=== PATIENT | male | born 1940 | race Caucasian/White ===

== ENCOUNTER 2023-05-11 12:29 | Inpatient (IN) | payer MEDICARE, OTHER, SELFPAY ==
[2023-05-11] VITALS (37 sets, daily range): BP systolic 106–156; BP diastolic 48–82; PULSE 55–89; RESP 11–22; TEMP 36.7–37.1; O2SAT 98; BMI 3755.4
--- NOTE | 2023-05-11 12:31 | XACV_ITS ---
Exam Room: 2 Ht: 183 cm Wt: 87 kg BSA: 2.11 m2 Gender: Male : 1940 Exam Priority: Routine Procedure(s): Procedure Description: Diagnostic procedure Procedure Description: Coronary Angiography Procedure Description: Pressure Wire Laura JACOBS; Diagnostic Cath Status: Emergency Diagnostic Findings * Patient with previous stents to unknown vessels admitted to [facility] with chest pain and ST elevation inferiorly. CT scanning done at [facility] to rule out dissection which was accomplished. Patient was given the appropriate medications at the [facility] and transferred here by ground ambulance. He was brought directly to the catheterization laboratory without stopping in the emergency room. Initially, the procedure was attempted through the right radial artery. The wire could not be fed past the elbow. There was either an occlusion or abnormality of the vessel which did not allow the wire to pass. The needle and wire were removed and the procedure switched to the groin. * Procedure was begun with a right coronary guide. The right coronary artery is the dominant vessel and ends distally as the posterior descending artery which branches upon itself and 2 posterior left ventricular branches. There is mild to moderate disease throughout the entire vessel. In the proximal portion there is moderate diffuse disease which is partially in-stent restenosis from a previously placed stent in the mid right coronary artery. This narrowing is up to about 30%. Just past the stent in the mid vessel there is a 99% discrete stenosis. The left main coronary artery contains a 30 to 40% ostial stenosis. The diagnostic catheter and the guiding catheter was difficult to seat in this vessel. It is relatively small. There was ventricularization of the pressure tracing but this may have been due to the fact that the catheter was as big or slightly larger than the left main. The circumflex is unremarkable. There are 2 marginal branches. The LAD, past the takeoff of the diagonal branch, contains 2 stents. One is in the proximal portion and 1 followed shortly thereafter. Both of these have in-stent restenosis to about 60%.. * Patient appears to have an abdominal aortic aneurysm. I made an attempt to pass a pigtail catheter beyond this and was unsuccessful. I could pass diagnostic catheters and a guiding catheter but the pigtail catheter would not move past the abdominal aorta. Therefore, I was unable to perform left heart catheterization or ventriculography. PCI Status: Emergency PCI LVEF Assessed: No PCI Indication: STEMI - Immediate PCI for STEMI Interventional Findings * The right coronary guide was placed initially. The wire was placed down the vessel. The mid right coronary artery lesion was primarily stented with a 3.5 x 12 mm stent. The angiographic result was excellent. I next moved to the left main coronary artery. Given the ostial nature of the lesion I performed an IFR. This was 1.0. I tried to place the IFR catheter down the LAD but was unsuccessful due to inability to move the tip of the wire past the stents. Because of the visual appearance of the lesions I chose to perform plain old balloon angioplasty of both stented areas. I used a 2.5 x 15 mm noncompliant balloon to perform plain old balloon angioplasty of both stented areas. Good angiographic result. Decision for PCI with Surgical Consult: No PCI for Multi-vessel Disease: Yes Conclusions 1. Subacute inferior wall myocardial infarction with ST elevation inferiorly but patent vessel at the time of angiography. Primary stenting of the mid right coronary artery. Plain old balloon angioplasty for in-stent restenosis of 2 stents in the LAD, proximal and mid. Recommendations * Medical treatment. Interventional RX Recommendation: medical therapy and/or counseling Diagnostic RX Recommendation: medical therapy and/or counseling Anticoagulation: Heparin Pressures Phase:Rest AO : 110 / 64 ( 86 ) @ 12:58:00 PM 134 / 70 ( 98 ) @ 1:06:00 PM 126 / 63 ( 85 ) @ 1:07:00 PM 171 / 82 ( 117 ) @ 1:18:00 PM 166 / 86 ( 118 ) @ 1:43:00 PM Clinical Evaluation EBL: 5mL-10mL Procedural Details Pre-Procedure Time Out. Identified patient by full name and date of as verbalized by the patient/guarantor. Does the consent match the physician's order: N/A Emergent. Accurate & Complete Informed Consent: N/A Emergent. Inpatient/Outpatient History & Physical on Chart: N/A Emergent. If H&P is completed, is and addenduem needed: N/A Emergent; If yes, is the addendum complete: N/A Emergent. Visualize and Verify Site with Patient/Guarantor: N/A. Relevant Radiology Images available: N/A Emergent. Pre-op teaching completed and patient verbalized understanding. The risks, benefits, and alternatives of sedation and/or procedure were discussed by physician. The patient agrees to continue. Procedure started. [facility] Clinical Fraility Score: 5: Mildly Frail. Feather Shaper Indications: ACS <= 24 hours. Chest Pain Symptom Assessment: Typical Angina Symptoms. Cardiovascular Instability: Yes, if yes, Persistant Ischemic Symptoms. Correct patient, site and procedure confirmed by cath team. Current diagnosis: STEMI. PERRLA. Strong, equal hand credit underwriter bilaterally. Lungs clear x 5 lobes. IV Site on Arrival: 18 gauge in the left anticubital. IV Fluids: 0.9% NaCl at KVO. 0 mL infused prior to prosthetic lab technician. Pre Procedural Pulses: right radial was 3+. Oxygen started at 2liters/min via nasal canula. right groin was prepped with chloroprep then draped in the usual sterile fashion. right radial was prepped with chloroprep then draped in the usual sterile fashion. Baseline sample Acquired. HR: 63 BPM. Physician arrived. Current Diagnosis : STEMI. AP Pads placed on the patient. EMS stated the patient recieved plavix 600mg, heparin 4000 units, aspirin 324mg. Physician scrubbed in. Immediate Pre-Procedure Time Out. Correct Patient: Yes; Correct Procedure: Yes; Correct Site: Yes; Correct Patient Position: Yes; Correct Supplies: Yes; Dried Flammable Prep: Yes; Blood Products Available: N/A;. Lidocaine 1% infiltrated to the right groin. Arterial access obtained. Wire unable to advance. A TR Band was successful obtaining hemostatsis at the Right Radial artery insertion site. Lidocaine 1% infiltrated to the right groin. Arterial access obtained. 6 maltese JR 4 guide catheter was inserted over the wire. Runthrough guidewire was advanced through the guide catheter to lesion in the mid RCA. Inflation Number : 1 Maru Culver MARIANNE 3.5X12 CHETAN -Lot Number# _[id number] EXP: 01/31/2024 was prepped and advanced across the Mid RCA. The stent was deployed at 15 GISELA for 0:31 seconds. Stent balloon out over wire. Wire out. Guide catheter out. A 6 maltese JL4 catheter in over wire. Multiple views taken of left coronary artery. Catheter out. A 6 maltese Angled Pig catheter in over wire. Catheter removed over the exchange wire. Physician review of cine films. 6 maltese XB 3 guide catheter was inserted over the wire. IFR guidewire was advanced through the guide catheter to lesion in the LM. IFR Results: 0.99. Wire out. IFR guidewire was advanced through the guide catheter to lesion in the prox LAD. Physician review of cine films. Wire out. Melvin guidewire was advanced through the guide catheter to lesion in the prox LAD. Inflation number : 1 A MDT NC EUPHORA RX [id number] BALLOON was prepped and advanced across the Mid LAD , then inflated to 14 GISELA for 0:27 seconds. Inflation number: 1 The MDT NC EUPHORA RX [id number] BALLOON was reinflated across the Prox LAD, to 14 GISELA for 0:27 seconds. Balloon out. Results checked. Wire out. Guide catheter out. A Suture was successful obtaining hemostatsis at the Right Femoral artery insertion site. Physician scrubbed out. Arterial sheath flushed and connected to tranducer and pressure bag with heparinized saline. Post Procedure: Pulses reassessed and unchanged. PERRLA. Strong, equal hand credit underwriter bilaterally. No VTE prophylaxis required. Vital chart was stopped. Medication's Wasted: Nitro = 50 mg. Medication's Wasted: Lidocaine 1% = 8 mL. Medication's Wasted: Other = Versed 1 mg. Medication's Wasted: Heparin = 4000 units. Total IV fluids: 75 mL. PCI Indication: STEMI. Post-op diagnosis: CAD. Complications: None. Estimated blood loss: 5mL-10mL. Responsiveness - Normal response to verbal stimuli; alert and oriented, PERRLA. Airway - Unaffected, no intervention required; spontaneous ventilation. Circulation: W/N/L, pulses unchanged. Nausea/Vomiting: No. Procedure completed. Patient transferred by bed to 1st floor. Access Site Site: Right Radial artery Sheath Size: 6 Fr Hemostasis Method: TR Band Hemostasis Success: Successful Site: Right Femoral artery Sheath Size: 6 Fr Hemostasis Method: Suture Hemostasis Success: Successful Procedure Medications Start: 12:39 PM Stop: 12:39 PM Medication: Versed Amount: 1 mg Route: I.V. Start: 12:39 PM Stop: 12:39 PM Medication: Fentanyl Amount: 50 mcg Route: I.V. Start: 12:45 PM Stop: 12:45 PM Medication: Versed Amount: 1 mg Route: I.V. Start: 12:59 PM Stop: 12:59 PM Medication: Heparin Amount: 3000 units Route: I.V. Start: 1:28 PM Stop: 1:28 PM Medication: Fentanyl Amount: 50 mcg Route: I.V. Start: 1:37 PM Stop: 1:37 PM Medication: Benadryl Amount: 25 mg Route: I.V. Start: 1:41 PM Stop: 1:41 PM Medication: Heparin Amount: 2000 units Route: I.V. Start: 1:43 PM Stop: 1:43 PM Medication: Versed Amount: 1 mg Route: I.Heriberto Ross, the attending physician, have reviewed and verified all procedure medications. Yes, all medications given per verbal order History/Risk Factors Hypertension: No Dyslipidemia: No Peripheral Arterial Disease (PAD): No Myocardial Infarction (NV): No Obesity: No Renal Disease: No Tobacco Use: Current/Recent(w/in 1 year) Prior Interventions PCI: Yes CABG: No Valve Surgery: No Report Signatures Finalized by Dr. Otis Sanchez MD on 05/11/2023 02:30 PM
--- NOTE | 2023-05-11 14:02 | PM.HP ---
Providers/Chief Complaint Admitting Physician: екатерина Primary Care Provider: Minh Maher Chief Complaint: Stemi History of Present Illness Frankie Tolliver is a 82 year old male who has a history of previously placed stent. These were done in a different facility and locations are unknown. He is a smoker. We do not know anything else about his medical history. This morning around 9:00 he was getting ready to take his for cataract surgery and had the sudden onset of severe chest pain. She took him to [facility]. He had mild ST elevation in the inferior leads. The emergency room physician was worried that he had a aortic dissection. He then obtained a CTA of his aorta. That test came back negative for dissection. For some reason he was started on amiodarone drip. I do not know why that was the case. He was given morphine, Zofran, aspirin, 4000 units of heparin and 600 mg of Plavix. His creatinine is 0.94. He did not have any record of a troponin in that emergency room. Chest x-ray was read as pulmonary vascular congestion. His blood pressure was 156/92. I was called and asked to accept the patient in transfer for urgent cardiac catheterization. Patient was brought here and bypass in the emergency room and taken straight to the catheterization laboratory. Review of Systems Narrative: Review of systems is negative PFSH Acute PFSH: Medical History (Updated 05/11/23 @ 14:08 by Otis Sanchez MD) Tobacco abuse Essential hypertension CAD (coronary artery disease) Acute TX, inferior wall Surgical History (Updated 05/11/23 @ 14:08 by Otis Sanchez MD) History of coronary artery stent placement Physical Exam Narrative: GENERAL: In general he looks and feels well HEENT: Exam within normal limits. NECK: Supple without jugular vein distention. The carotid upstroke is normal without bruits. BACK: Exam normal. LUNGS: Clear. HEART: Regular rate and rhythm. ABDOMEN: Benign without organomegaly or tenderness. EXTREMITIES: No edema. NEUROLOGIC: Exam normal. SKIN: Unremarkable. A&P Assessment and plan (1) Acute TX, inferior wall: (2) CAD (coronary artery disease): (3) History of coronary artery stent placement: (4) Essential hypertension: (5) Tobacco abuse: Plan He appears to have an inferior injury pattern. He will go to the Medical [facility] Clinical urgently for angiography and potential intervention. Attestations Medical Necessity Statement*: Admission for acute inferior wall myocardial infarction. Anticipate 2 midnight stay. and High Time for a total of 90 minutes, includes reviewing past or interval history, examining/interviewing patient, placing orders, counseling patient/family/other support, updating patient/family/other support, discussing plan of care with staff, communicating with other healthcare providers, documenting encounter and coordinating care Diagnoses Acute TX, inferior wall I21.19 CAD (coronary artery disease) I25.10 History of coronary artery stent placement Z95.5 Essential hypertension I10 Tobacco abuse Z72.0
[2023-05-11] MEDS: sodium chloride 0.9% 1,000 ML 100 ML IV (14:15)
--- NOTE | 2023-05-11 14:19 | USCV_ITS ---
Frankie Tolliver Age: 82 Gender: M : 1940 Exam Date: 05/11/2023 15:03 Ordering Phys: Otis Sanchez MD Technologist: CT Exam Location: [facility] [place]_ Indication: cad,mi BP: 155 / 78 HR: 58 Rhythm: Sinus Technical Quality: Suboptimal MEASUREMENTS (Male / Female) Normal Values 2D ECHO LVOT Diameter 2.6 cm LV Ejection Fraction MOD 2C 57.2 % LV Ejection Fraction 2C AL 57.4 % LA Diameter 3.8 cm Aorta at Sinotubular Diameter 2.3 cm M-MODE Aortic Annulus Diameter 3.5 cm LA Ao Ratio MM 1.1 MV E Point Septal Separation 1.0 cm DOPPLER AV Peak Velocity 157.0 cm/s LVOT Peak Velocity 116.0 cm/s AV Area Cont Eq vti 3.8 cm squared AV Area Cont Eq pk 3.9 cm squared MV E' Velocity 8.0 cm/s TR Peak Velocity 95.0 cm/s TR Peak Gradient 3.6 mmHg TV Peak E Velocity 62.0 cm/s Right Atrial Pressure 3.0 mmHg Pulmonary Artery Systolic Pressu 6.6 mmHg PV Peak Velocity 108.0 cm/s FINDINGS Left Ventricle Normal left ventricular cavity size. Normal left ventricular wall thickness. Mildly decreased left ventricular systolic function. Mild hypokinesis of the inferior wall. Ejection fraction 50 to 55%. Grade 1 diastolic dysfunction. Right Ventricle Normal right ventricular size and systolic function. Normal right ventricular systolic pressure. Right Atrium The right atrium is normal in size. Left Atrium The left atrium is normal in size. Mitral Valve Structurally normal mitral valve. Trace mitral valve regurgitation. Aortic Valve Structurally normal trileaflet aortic valve. Mild aortic valve regurgitation. No aortic valve stenosis. Tricuspid Valve Structurally normal tricuspid valve without significant stenosis or regurgitation. Pulmonary artery systolic pressure is normal. Pulmonic Valve Pulmonic valve not well visualized. Pericardium Normal pericardium without effusion. Aorta Normal ascending aorta dimension. IVC The inferior vena cava appears normal. CONCLUSIONS Normal left ventricular cavity size. Normal left ventricular wall thickness. Mildly decreased left ventricular systolic function. Mild hypokinesis of the inferior wall. Ejection fraction 50 to 55%. Grade 1 diastolic dysfunction. Structurally normal mitral valve. Trace mitral valve regurgitation. Structurally normal trileaflet aortic valve. Mild aortic valve regurgitation. No aortic valve stenosis. There are no prior echocardiogram studies to compare. Dr. Otis Sanchez MD (Electronically Signed) Final Date: 12 May 2023 07:16 S
--- NOTE | 2023-05-11 14:39 | USCV_ITS ---
Frankie Tolliver Age: 82 Gender: M : 1940 Exam Date: 05/11/2023 16:27 Ordering Phys: Otis Sanchez MD Technologist: Exam Location: Indication: aaa screening HISTORY: Diameter (cm) AP x Transverse x Length Velocity (cm/s) Waveform Prox Aorta: x x Mid Aorta: 3.60 x 3.50 x Distal Aorta: 3.50 x 3.70 x Right Iliac Prox: 1.10 x 1.30 x Left Iliac Prox: 1.00 x 1.30 x Stent Prox Landing x x Aneurysmal Sac Max x x Lt Lat Sac Dim Rt Lat Sac Dim Stent Dist Landing x x Right Iliac Stent x x Left Iliac Stent x x Right Renal Art Left Renal Art FINDINGS: CONCLUSIONS Distal AAA measuring 3.5 x 3.7cm. Mild atheromatous disease Normal Iliac arteries Los Huizar MD (Electronically Signed) Final Date: 11 May 2023 16:59 S
[2023-05-11 16:15] LABS: Troponin T (5th) Once 132 ng/L (0-15)
[2023-05-11] MEDS: metoprolol tartrate 25 mg Tablet PO ×2 (16:18→20:52)
[2023-05-11 16:19] LABS: Partial Thromboplastin Time 77.1 SECONDS (23.9-36.7)
--- NOTE | 2023-05-11 20:09 | PC.NURSE ---
Patient is s/p [facility] with right groin access. Patient had sheath remaining in place at shift change. Site without s/s of bleeding and hematoma formation. Initiated sheath removal per protocol at 194. Homeostasis achieved immediately. Maintained manual pressure to site for 20min. Covered site with folded 4x4 and bio-occlusive dressing. VS remained WNL. Site remains free from bleeding or hematoma formation. Instructed patient and spouse regarding site and restrictions. Both verbalized complete understanding. Will continue to monitor.
[2023-05-11 20:38] LABS: Partial Thromboplastin Time 28.9 SECONDS (23.9-36.7)
[2023-05-11] MEDS: atorvastatin 40 mg Tablet 80 MG PO (20:52)
[2023-05-12 01:52] VITALS: PULSE 55
[2023-05-12 03:28] VITALS: BP 120/64; PULSE 54; RESP 16
[2023-05-12 04:58] LABS: Basophils % 0.4 %; Eosinophils # 0.2 10^3/uL (0.0-0.8); Eosinophils % 2.3 %; Lymphocytes # 1.6 10^3/uL (0.8-4.8); Lymphocytes % 18.7 %; Mean Corpuscular HGB Conc 33.4 g/dL (30-55); Mean Corpuscular Hemoglobin 32.3 pg (27-33); Mean Corpuscular Volume 96.7 fl (82-101); Mean Platelet Volume 9.1 fL (7.4-10.4); Monocytes # 0.8 10^3/uL (0.2-0.9); Neutrophils # 5.94 10^3/uL (1.8-7.7); Neutrophils % 69.2 %; Nucleated Red Blood Cells % 0 %; Platelet Count 229 10^3/cmm (157-399); Red Blood Count 3.62 10^6/uL (3.85-5.65); Red Cell Distribution Width 13.2 % (12.1-15.1); White Blood Count 8.57 10^3/uL (3.29-11.43)
[2023-05-12 05:15] LABS: Anion Gap 13.4 (5-19); Blood Urea Nitrogen 16 mg/dL (8-23); Calcium 8.9 mg/dL (8.5-10.5); Carbon Dioxide 23 mmol/L (22-29); Chloride 107 mmol/L (98-107); Glucose 107 mg/dL (65-115); Osmolality Calculated 290 mOsm/kg (285-295); Potassium 4.4 mmol/L (3.5-5.1); Sodium 139 mmol/L (136-145)
[2023-05-12 06:00] VITALS: PULSE 56
--- NOTE | 2023-05-12 07:47 | P.DS_ITS ---
Discharge Providers Date of Admission: 05/11/23 14:08 Date of Discharge: May 12, 2023 Attending Provider at Admission: Otis Sanchez MD Attending Provider at Discharge: Otis Sanchez MD Primary Care Provider: Minh Franklinno Diagnoses at Discharge Discharge Diagnosis (1) Acute FL, inferior wall: Status: Acute (2) CAD (coronary artery disease): Status: Acute (3) History of coronary artery stent placement: Status: Acute (4) Essential hypertension: Status: Acute (5) Tobacco abuse: Status: Acute Reason for Visit Reason for Visit: Stemi Brief History: Patient with a history of prior stents who had the sudden onset of chest discomfort yesterday morning around 9:00. He went to his local hospital which is about a 45-minute drive from here. His EKG suggested inferior injury. There was a delay getting out of the originating hospital due to the fact that the patient had a CTA of his aorta to rule out an aneurysm or dissection. Additionally there was delay in getting in the ambulance. He was brought here by ground ambulance. We did not stop him in the emergency room and took him st raight to the catheterization laboratory. His pain was fairly typical. He was hemodynamically stable upon arrival. He had been given aspirin, Plavix and heparin in the originating hospital. He was essentially pain-free by the time he arrived here. Hospital Course Hospital Course He was taken immediately to the cardiac catheterization laboratory here. I was able to enter the radial artery on the right without any difficulty however the wire would not pass beyond the elbow. Therefore I remove the wire and the needle and initiated the case through the right common femoral artery. I had some difficulty negotiating what is an abdominal aortic aneurysm. It manage to hold up the catheters especially the pigtail to the point where I was unable to pass the pigtail. The other catheters would go beyond the aneurysm. His right coronary artery is dominant. He has a previous stent in the proximal to midportion. There is minimal in-stent restenosis in the proximal part of that stent. Just beyond the stent there is a 99% discrete stenosis of the right coronary artery which was the culprit lesion. I primarily stented this with a 3.5 x 12 mm stent. He has 2 stents in his LAD. Both of these had about 60 to 70% restenosis. He also had a minimal ostial left main stenosis. There was some ventricularization of the pressure waveform upon placement of the catheter. This may have been due to the fact that the left main is relatively small and the catheter is at least as large or perhaps slightly larger than the left main itself. To be sure, I did an IFR of the left main. It was 1.0. I was not able to pass the IFR wire down the LAD due to tortuosity and curvature of the LAD and inability to move the wire past the stents. I therefore put an angioplasty wire down and did plain old balloon angioplasty with a noncompliant balloon of both stents. The angiographic results in all 3 areas was good. CBC was unremarkable. His electrolytes BUN and creatinine were normal. Troponin was repeated here last evening and was 132. This was several hours into the chest pain. His echo revealed very minimal hypokinesis of the inferior wall with an ejection fraction of 50 to 55%. No valvular abnormalities to speak of. Mild aortic insufficiency and trace mitral regurgitation were noted. Because of my suspicion of a AAA. I performed an ultrasound of the abdominal aorta. There is a 3.5 x 3.7 distal AAA. Patient did well overnight and was anxious to go home the following day. There were no complications at either entry site the right radial of the right groin. Both he and his have been instructed on how to take care of the groin site and his activity restrictions. Patient's told me that he had difficulty with Plavix when he was first stented years ago. She said it made him out of his mind . We will therefore switch him over to Brilinta upon his discharge. He was on no cardiac medications when he arrived. No aspirin, no beta-alisa, no statin. Those have all been added. His other medications have been continued. Physical Exam Narrative: GENERAL: In general he looks and feels well HEENT: Exam within normal limits. NECK: Supple without jugular vein distention. The carotid upstroke is normal without bruits. BACK: Exam normal. LUNGS: Clear. HEART: Regular rate and rhythm. ABDOMEN: Benign without organomegaly or tenderness. EXTREMITIES: No edema. The right radial site is without bleeding, hematoma or other vascular anomaly. The right common femoral entry site is flat, dry without bleeding or hematoma or without pulsatile mass. There is a good pulse in both locations. NEUROLOGIC: Exam normal. SKIN: Unremarkable. Discharge Data Studies Completed and Pending Completed Studies During Hospitalization Category Date Time Status CONFIGURATION DEVELOPER request for service Stat Exams 05/11/23 12:31 Completed CV abd [place] [id number] Routine Ultrasound 05/11/23 14:39 Completed CV. echo complete* [id number] Routine Ultrasound 05/11/23 14:19 Completed Laboratory Results WBC 8.57 10^3/uL (3.29-11.43) 05/12/23 04:44 RBC 3.62 10^6/uL (3.85-5.65) L 05/12/23 04:44 Hgb 11.70 g/dL (11.27-16.99) 05/12/23 04:44 Hct 35.0 % (37-53) L 05/12/23 04:44 MCV 96.7 fl (82-101) 05/12/23 04:44 MCH 32.3 pg (27-33) 05/12/23 04:44 MCHC 33.4 g/dL (30-55) 05/12/23 04:44 RDW 13.2 % (12.1-15.1) 05/12/23 04:44 Plt Count 229 10^3/cmm (157-399) 05/12/23 04:44 MPV 9.1 fL (7.4-10.4) 05/12/23 04:44 Neut % (Auto) 69.2 % 05/12/23 04:44 Lymph % (Auto) 18.7 % 05/12/23 04:44 [place] % (Auto) 9.0 % 05/12/23 04:44 Eos % (Auto) 2.3 % 05/12/23 04:44 Baso % (Auto) 0.4 % 05/12/23 04:44 Neut # (Auto) 5.94 10^3/uL (1.8-7.7) 05/12/23 04:44 Lymph # (Auto) 1.6 10^3/uL (0.8-4.8) 05/12/23 04:44 [place] # (Auto) 0.8 10^3/uL (0.2-0.9) 05/12/23 04:44 Eos # (Auto) 0.2 10^3/uL (0.0-0.8) 05/12/23 04:44 Baso # (Auto) 0.0 10^3/uL (0.0-0.1) 05/12/23 04:44 Nucleated RBC % (auto) 0 % 05/12/23 04:44 Nucleated RBCs # 0.0 /100WBC 05/12/23 04:44 APTT 28.9 SECONDS (23.9-36.7) D 05/11/23 19:36 Sodium 139 mmol/L (136-145) 05/12/23 04:44 Potassium 4.4 mmol/L (3.5-5.1) 05/12/23 04:44 Chloride 107 mmol/L (98-107) 05/12/23 04:44 Carbon Dioxide 23 mmol/L (22-29) 05/12/23 04:44 Anion Gap 13.4 (5-19) 05/12/23 04:44 BUN 16 mg/dL (8-23) 05/12/23 04:44 Creatinine 0.7 mg/dL (0.7-1.2) 05/12/23 04:44 GFR Calculation Not Reportable 05/12/23 04:44 Glucose 107 mg/dL (65-115) 05/12/23 04:44 Calculated Osmolality 290 mOsm/kg (285-295) 05/12/23 04:44 Calcium 8.9 mg/dL (8.5-10.5) 05/12/23 04:44 Troponin T 5th Gen ng/L 132 ng/L (0-15) H* 05/11/23 15:38 Procedures Performed Coronary angiography. IFR of the left main. Primary stenting mid right coronary artery. Angioplasty proximal and mid LAD for in-stent restenosis. Vitals Last Vital Signs Temp 98.8 F 05/11/23 23:25 Pulse 56 L 05/12/23 06:00 Resp 16 05/12/23 03:28 BP 120/64 05/12/23 03:28 Pulse Ox 98 05/11/23 15:47 O2 Del Method Room Air 05/11/23 23:25 Discharge Plan Discharge Patient Disposition: Home Condition: Stable Prescriptions: New Brilinta 90 mg tablet 90 mg PO BID Qty: 60 4RF trazodone 100 mg tablet 100 mg PO DAILY Qty: 20 0RF aspirin 81 mg Tablet,Delayed Release (Dr/Ec) 81 mg PO DAILY Qty: 100 0RF atorvastatin 40 mg Tablet 80 mg PO BEDTIME Qty: 90 3RF nitroglycerin 0.4 mg Tablet, Sublingual 0.4 mg sublingual Q5M PRN (Reason: Chest Pain) Qty: 25 0RF metoprolol tartrate 25 mg Tablet 25 mg PO Q12H Qty: 180 2RF Continued tramadol 50 mg tablet 50 mg PO TID PRN (Reason: Pain) citalopram 20 mg tablet 20 mg PO BEDTIME hydroxyzine HCl 25 mg tablet 25 mg PO TID PRN (Reason: Itching) pregabalin 75 mg capsule 75 mg PO BID Discharge Orders: Discharge Order (Routine); Ordered 05/12/23 Ordered By: Otis Sanchez Referrals: Otis Sanchez MD [Physician] - 3 months Radha Whitlock FNP [Nurse Practitioner] - 05/20/23 11:00 am (Check right groin site and chemistry panel.) Discharge Diet: Cardiac Discharge Activity: Resume usual activity and Limit activity as instructed Patient Instructions: Opioid Safety Activity Restrictions/Additional Instructions: No lifting over 5 pounds for 2 days Discharge Attestations Time Spent in Discharge Care*: greater than 30 min Quality Metrics Clinical Quality Measures [ Acute Myocardial Infaction { Clinical Trial Participant: No; Contraindication to aspirin: None; Aspirin prescribed; Contraindication to statin: None; Statin prescribed; Contraindication to PCI: None; PCI performed;}] Coding Level of Care Code 24656 Total time (in minutes) for Discharge: 40 Diagnoses Acute FL, inferior wall I21.19 CAD (coronary artery disease) I25.10 History of coronary artery stent placement Z95.5 Essential hypertension I10 Tobacco abuse Z72.0
[2023-05-12] MEDS: metoprolol tartrate 25 mg Tablet PO (09:02)
[2023-05-12] MEDS: clopidogrel 75 mg Tablet PO (09:02)
[2023-05-12] MEDS: aspirin 81 mg EC Tablet PO (09:02)
[2023-05-12 09:13] VITALS: BP 121/68
[2023-05-12 09:14] VITALS: BP 121/68
--- NOTE | 2023-05-12 09:35 | PC.NURSE ---
Addendum entered by Parker Odonnell RN 05/12/23 09:54: pt d/c home via w/c to POV with his . Original Note: Discharge Note Patient discharged to [] via [] accompanied by []. Discharge instructions reviewed with patient and/or surgical sales representative. Mobile pharmacy medications and/or prescriptions provided. Belongings/home medications returned.
== END 2023-05-12 09:35 | disposition home or self-care (01) | DRG 322 ==
LOC: ER 12:41 → CCL 12:43 → CSU 14:08
PROVIDERS: Admitting Provider Internal Medicine Cardiovascular Disease; Emergency Provider Emergency Medicine; PCP Family Medicine; Visit Provider Internal Medicine Cardiovascular Disease
PROC: 027034Z Dilation of Coronary Artery, One Artery with Drug-eluting Intraluminal Device, Percutaneous Approach (ICD-10-PCS; principal; 2023-05-11 12:30)
PROC: 027034Z Dilation of Coronary Artery, One Artery with Drug-eluting Intraluminal Device, Percutaneous Approach (ICD-10-PCS; 2023-05-11 12:30)
DX: I21.19 ST elevation (STEMI) myocardial infarction involving other coronary artery of inferior wall (principal); T82.855A Stenosis of coronary artery stent, initial encounter; I25.10 Atherosclerotic heart disease of native coronary artery without angina pectoris; Z95.5 Presence of coronary angioplasty implant and graft; Y84.0 Cardiac catheterization as the cause of abnormal reaction of the patient, or of later complication, without mention of misadventure at the time of the procedure; I10 Essential (primary) hypertension; F17.210 Nicotine dependence, cigarettes, uncomplicated; I71.40 Abdominal aortic aneurysm, without rupture, unspecified
CPT/HCPCS: 36415; 76706; 80048; 84484; 85025; 85730; 92920; 93306; 93454; 93571; 96361; 96365; 99152; 99153; 99285; C1725; C1769; C1874; C1887; C1894; C9600; J0461; J1200; J1644; J2250; J3010; J3490; J7030; Q9967

== ENCOUNTER → 2023-05-20 11:38 | Outpatient (BNVA) | payer MEDICARE, OTHER, SELFPAY | PROVIDERS: PCP Family Medicine; Visit Provider Nurse Practitioner Family | DX: I25.10 Atherosclerotic heart disease of native coronary artery without angina pectoris (principal); I10 Essential (primary) hypertension | CPT/HCPCS: 36415; 80048; 99214 ==

== ENCOUNTER → 2023-08-10 10:40 | Outpatient (BNVA) | payer MEDICARE, OTHER, SELFPAY | PROVIDERS: PCP Family Medicine; Visit Provider Internal Medicine Cardiovascular Disease | DX: I25.10 Atherosclerotic heart disease of native coronary artery without angina pectoris (principal); Z95.5 Presence of coronary angioplasty implant and graft; I10 Essential (primary) hypertension; Z72.0 Tobacco use; R91.8 Other nonspecific abnormal finding of lung field | CPT/HCPCS: 99214 ==

== ENCOUNTER → 2023-08-15 14:41 | Outpatient (BNVA) | payer MEDICARE, OTHER, SELFPAY | PROVIDERS: PCP Family Medicine; Visit Provider Internal Medicine Pulmonary Disease | DX: R91.8 Other nonspecific abnormal finding of lung field (principal); J43.9 Emphysema, unspecified; F17.210 Nicotine dependence, cigarettes, uncomplicated | CPT/HCPCS: 99204 ==

== ENCOUNTER 2023-08-23 10:12 | Outpatient (CLI) | payer MEDICARE, OTHER, SELFPAY ==
--- NOTE | 2023-08-23 10:16 | PETR_ITS ---
PROCEDURE INFORMATION: Exam: PET/CT Skull Base to Mid-thigh Exam date and time: 08/23/2023 11:01 AM Age: 82 years old Clinical indication: Mass of upper lobe of right lung LABS AND CLINICAL REPORTS: Glucose: 103 mg/dl Treatment strategy for malignancy (PET staging): Initial Staging (PI) TECHNIQUE: Imaging protocol: Following at least four-hour fasting and following the injection of radiopharmaceutical, low dose CT images were obtained. Then, PET images were obtained. Attenuation corrected images were constructed using the CT scan. Fused images of PET and CT were reviewed. The standardized uptake values (SUV) reported below are maximum values within a region of interest, expressed in gm/ml. Exam includes orbital meatal line to mid-thigh. Radiopharmaceutical: 11.43 mCi F-18 FDG (Fluorodeoxyglucose), IV. Time of imaging post radiopharmaceutical administration: 1 hour Injection site: Right antecubital vein COMPARISON: CT angio chest w abd pel w con 05/11/2023 FINDINGS: Brain: Visualized brain has normal physiologic uptake. Pharynx: No abnormal uptake. Larynx: No abnormal uptake. Lungs, pleura and trachea: Right upper lobe consolidation with irregular V-shaped branching appearance and spiculated margins with the highest uptake of 4.3 SUV is smaller in comparison with prior exam on 05/11/2023 with partial resolution of the lower most component as seen on series 3 image 78-80. The overall maximal oblique craniocaudal span of this consolidation on sagittal reformatted image decreased from 6 cm to 4.3 cm. The anterior-posterior diameter of the opacity measured on axial image 75 decreased from 4 cm to 2.4 cm. No pleural effusion. Heart: Normal physiologic uptake. There is no cardiomegaly. Coronary artery calcification is present. There is no pericardial effusion. Mediastinal space: See below in lymph nodes . Liver: No abnormal uptake. Small calcified granuloma. Gallbladder and bile ducts: No abnormal uptake. No calcified gallstones. Pancreas: No abnormal uptake. Punctate calcifications seen with chronic pancreatitis. No significant atrophy. Spleen: No abnormal uptake. No splenomegaly. Small calcified granulomas. Adrenal glands: No abnormal uptake. No nodules. Kidneys and ureters: Normal physiologic uptake. No hydronephrosis. Tiny bilateral nonobstructing stones measuring up to 3 mm. 5.5 cm simple cyst exophytic medially from the upper pole of the left kidney. Stomach and bowel: No abnormal uptake. Extensive diverticulosis of the sigmoid colon. Intraperitoneal and retroperitoneal spaces: No abnormal uptake. No ascites. Bladder: Normal physiologic uptake. Reproductive: No abnormal uptake. The prostate is enlarged. Vasculature: No abnormal uptake. 3.2 cm infrarenal abdominal aortic aneurysm. Lymph nodes: Borderline increased uptake of 2.8 SUV within normal size bilateral hilar lymph nodes is probably benign. There is sequela of exposure to granulomatous disease with calcified granulomas within normal size mediastinal and bilateral hilar lymph nodes. no FDG avid lymphadenopathy in the head, neck, abdomen, pelvis, and extremities. Bones/joints: No abnormal uptake in the visualized axial and appendicular skeleton. Degenerative changes in the cervical and lumbar spine. Soft tissues: No abnormal uptake in the visualized head, neck, chest, abdomen, pelvis, and extremities. [id number] IMPRESSION: FDG avid irregular shaped right upper lobe consolidation decreased in size since 05/11/2023. While malignancy cannot be excluded based on degree of uptake (4.3 SUV), interval decreased in size/partial resolution is suggestive of at least component of pneumonia. Bilateral symmetric borderline increased uptake (2.8 SUV) in the normal size bilateral hilar lymph nodes is probably benign reactive in nature. No FDG avid findings outside of the chest.
== END 2023-08-23 10:13 | disposition home or self-care (01) ==
LOC: RAD 10:13
PROVIDERS: PCP Family Medicine; Visit Provider Nurse Practitioner Family
DX: R91.8 Other nonspecific abnormal finding of lung field (principal)
CPT/HCPCS: 78815; A9552

== ENCOUNTER 2023-08-31 08:39 | Outpatient (CLI) | payer MEDICARE, OTHER, SELFPAY ==
[2023-08-31 09:02] VITALS: PULSE 57; RESP 18; O2SAT 98
[2023-08-31] MEDS: albuterol 2.5 mg/3 mL Neb INHALATION (09:02)
[2023-08-31 09:07] VITALS: PULSE 58
== END 2023-08-31 08:40 | disposition home or self-care (01) ==
LOC: RT 08:40
PROVIDERS: PCP Family Medicine; Visit Provider Internal Medicine Pulmonary Disease
DX: R91.8 Other nonspecific abnormal finding of lung field (principal)
CPT/HCPCS: 94060; 94618; 94726; 94729; J7613

== ENCOUNTER → 2023-09-15 09:56 | Outpatient (BNVA) | payer MEDICARE, OTHER, SELFPAY | PROVIDERS: PCP Family Medicine; Visit Provider Internal Medicine Pulmonary Disease | DX: R91.8 Other nonspecific abnormal finding of lung field (principal); J43.9 Emphysema, unspecified; Z72.0 Tobacco use | CPT/HCPCS: 99214 ==

== ENCOUNTER → 2024-02-08 09:45 | Outpatient (BNVA) | payer MEDICARE, OTHER, SELFPAY | PROVIDERS: PCP Family Medicine; Visit Provider Nurse Practitioner Family | DX: I71.43 Infrarenal abdominal aortic aneurysm, without rupture (principal); R60.0 Localized edema; I25.10 Atherosclerotic heart disease of native coronary artery without angina pectoris; Z87.891 Personal history of nicotine dependence; I25.2 Old myocardial infarction; I10 Essential (primary) hypertension | CPT/HCPCS: 36415; 80048; 83880; 99214 ==

== ENCOUNTER 2024-04-20 11:05 | Oncology outpatient (recurring) (ONCR) | payer MEDICARE, OTHER, SELFPAY ==
--- NOTE | 2024-04-20 11:30 | USCV_ITS ---
Frankie Tolliver Age: 83 Gender: M : 1940 Exam Date: 04/20/2024 11:30 Ordering Phys: Radha Whitlock Technologist: CT [place] [facility] [place]: HISTORY: Diameter (cm) AP x Transverse x Length Velocity (cm/s) Waveform Prox Aorta: x 2.30 x 2.70 54.00 Mid Aorta: x 2.30 x 2.20 44.40 Distal Aorta: x 3.30 x 3.40 50.40 Right Iliac Prox: x 1.00 x 1.00 128.10 Left Iliac Prox: x 0.90 x 0.90 107.20 Stent Prox Landing x x Aneurysmal Sac Max x x Lt Lat Sac Dim Rt Lat Sac Dim Stent Dist Landing x x Right Iliac Stent x x Left Iliac Stent x x Right Renal Art Left Renal Art FINDINGS: Comparison:. 05/11/23 A fusiform abdominal aortic aneurysm is noted with a maximal diameter of 3.4 cm. AAA measures slightly smaller today as compared to the prior exam. No evidence of periaortic fluid is detected. Atherosclerotic plaque is noted in the abdominal aorta. There is evidence of atherosclerotic plaque no significan stenosis in the right common iliac artery. There is evidence of atherosclerotic plaque no significan stenosis in the left common iliac artery. CONCLUSIONS No progression of AAA since the prior exam. Maximum diameter 3.[address] Ayesha Apple DO (Electronically Signed) Final Date: 23 April 2024 12:32 S
== END 2024-05-18 23:59 | disposition home or self-care (01) ==
PROVIDERS: PCP Family Medicine; Visit Provider Nurse Practitioner Family
DX: I71.40 Abdominal aortic aneurysm, without rupture, unspecified (principal)
CPT/HCPCS: 93978

== ENCOUNTER 2024-04-27 20:29 | Inpatient (IN) | payer MEDICARE, OTHER, SELFPAY ==
[2024-04-27 20:34] VITALS: BP 119/79; PULSE 117; RESP 18; TEMP 36.6; O2SAT 97; BMI 23.7
--- NOTE | 2024-04-27 20:38 | XRR_ITS ---
PROCEDURE INFORMATION: Exam: XR Thoracic Spine Exam date and time: 04/27/2024 8:46 PM Age: 83 years old Clinical indication: Pain in thoracic spine; Patient HX: Upper/mid/low back pain TECHNIQUE: Imaging protocol: Radiologic exam of the thoracic spine. Views: 3 views. COMPARISON: PT PET skull to thigh INIT [id number] 08/23/2023 11:01 AM FINDINGS: Bones/joints: Degenerative changes involve the thoracic spine without fracture or subluxation. There is mild diffuse anterior and marginal osteophyte formation. Soft tissues: Unremarkable. Lungs: Patchy opacities present in the right upper lung field better seen on chest x-ray performed on the same day. XR/XR thoracic spine 3V* [id number] IMPRESSION: Multilevel degenerative changes involving the thoracic spine without fracture.
--- NOTE | 2024-04-27 20:38 | XRR_ITS ---
PROCEDURE INFORMATION: Exam: XR Lumbosacral Spine Exam date and time: 04/27/2024 8:46 PM Age: 83 years old Clinical indication: Lumbago; Patient HX: Upper/mid/low back pain TECHNIQUE: Imaging protocol: Radiologic exam of the lumbosacral spine. Views: 2 or 3 views. COMPARISON: PT PET skull to thigh INIT [id number] 08/23/2023 11:01 AM FINDINGS: Bones/joints: There is right convex curvature of the lumbar spine. Extensive anterior and marginal osteophyte formation noted throughout lumbar spine with diffuse facet arthropathy. Disc space narrowing with vacuum disc phenomenon present at L1-L2 and L4-L5. Lumbar spine is free of fracture Soft tissues: Unremarkable. Vasculature: Calcific plaque involves the abdominal aorta. XR/XR lumbar spine 2-3V* [id number] IMPRESSION: Extensive degenerative changes involving lumbar spine. No acute bony abnormality.
--- NOTE | 2024-04-27 20:38 | XRR_ITS ---
PROCEDURE INFORMATION: Exam: XR Chest Exam date and time: 04/27/2024 8:46 PM Age: 83 years old Clinical indication: Chest pressure; Patient HX: Upper/mid/low back pain TECHNIQUE: Imaging protocol: Radiologic exam of the chest. Views: 1 view. COMPARISON: CT angio chest w abd pel w con 05/11/2023 10:51 AM FINDINGS: Lungs: There are patchy opacities in the right lung apex which may reflect airspace disease versus parenchymal scarring. Left apical parenchymal scarring present. Chronic interstitial lung changes present. Pleural spaces: Unremarkable. No pleural effusion. No pneumothorax. Heart/Mediastinum: Unremarkable. No cardiomegaly. Vasculature: Calcific plaque involves the aortic knob. Bones/joints: Degenerative changes involve the spine. XR/XR chest 1V portable [id number] IMPRESSION: 1. Patchy opacities involving the right lung apex which may reflect acute airspace disease versus parenchymal scarring. 2. Bilateral diffuse chronic interstitial lung changes.
--- NOTE | 2024-04-27 20:42 | W.ED.BACK ---
HPI - Back Pain/Injury General: Chief Complaint: Back Pain/Injury Stated Complaint: back pain Time Seen by Provider: 04/27/24 20:35 Source: patient and EMS Mode of arrival: EMS Limitations: no limitations History of Present Illness: 83-year-old male here from home with back pain. For him as he has had a history of back pain states had some worsening mid back pain mainly on the right side that started this evening. Pain is worse with movement and palpation he denies any chest pain to me denies abdominal pain denies any vomiting or diarrhea difficulty urinating he does have some confusion of believe this is baseline. Family is here and did get more history from she states that he has been complaining of not felt well over the last 4 to 5 days states he complained of some shortness of breath today along with pain everywhere. Associated symptoms: Deny abdominal pain, chills, dysuria, fever(s), nausea or vomiting Related Data Home Medications Medication Instructions Recorded Confirmed citalopram 20 mg tablet 20 mg PO BEDTIME 05/12/23 02/08/24 hydroxyzine HCl 25 mg tablet 25 mg PO TID PRN Itching 05/12/23 02/08/24 pregabalin 75 mg capsule 75 mg PO BID 05/12/23 02/08/24 tramadol 50 mg tablet 50 mg PO TID PRN Pain 05/12/23 02/08/24 cholecalciferol (vitamin D3) 10 10 mcg PO DAILY 08/15/23 02/08/24 mcg (400 unit) capsule mecobalamin (vitamin B12) 1,000 1,000 mcg PO DAILY 08/15/23 02/08/24 mcg chewable tablet omega-3 fatty acids 500 mg PO BID 08/15/23 02/08/24 donepezil 5 mg tablet 5 mg PO DAILY 09/15/23 02/08/24 Previous Rx's Medication Instructions Recorded aspirin 81 mg tablet,delayed 81 mg PO DAILY #100 tabs 05/12/23 release metoprolol tartrate 25 mg tablet 25 mg PO Q12H #180 tabs 05/12/23 nitroglycerin 0.4 mg sublingual 0.4 mg sublingual Q5M PRN Chest 05/12/23 tablet Pain #25 tabs trazodone 100 mg tablet 100 mg PO DAILY #20 tabs 01/25/24 clopidogrel 75 mg tablet 75 mg PO DAILY #90 tabs 05/18/23 atorvastatin 80 mg tablet 80 mg PO BEDTIME #90 tabs 05/20/23 albuterol sulfate 90 mcg/actuation 1 inh inhalation QID PRN shortness 08/15/23 aerosol inhaler (Ventolin HFA) of breath or wheezing #8.5 grams tiotropium bromide 1.25 2 puff inhalation DAILY #4 grams 08/15/23 mcg/actuation mist for inhalation (Spiriva Respimat) furosemide 40 mg tablet 40 mg PO DAILY PRN edema #90 tabs 02/08/24 Allergies Allergy/AdvReac Type Severity Reaction Status Date / Time No Known Allergies Allergy Verified 02/08/24 10:02 Review of Systems Const: Reports: body aches; Denies: fever(s), chills or change in appetite ENMT: Denies: throat pain or dental pain Card: Denies: chest pain Resp: Reports: dyspnea GI: Denies: abdominal pain, nausea, vomiting or diarrhea : Denies: dysuria Musc: Reports: back pain; Denies: neck pain Skin/Breast: Denies: rash Neuro: Denies: headache(s) PFS ED PFSH: Medical History Mass of upper lobe of right lung Tobacco abuse Essential hypertension CAD (coronary artery disease) Acute [place], inferior wall Surgical History History of coronary artery stent placement Family History Mother CAD (coronary artery disease) Sister CAD (coronary artery disease) Son CAD (coronary artery disease) Denies family history of Diabetes Cardiomyopathy Social History Smoking and tobacco/nicotine status: former use of tobacco/nicotine Alcohol intake: never Substance/Drug Use: current Physical Exam Const: COMMON NORMALS: no acute distress and healthy appearing HENMT: COMMON NORMALS: normocephalic and atraumatic HEAD & SCALP: normocephalic and atraumatic Eye: COMMON NORMALS: conjunctivae normal CONJUNCTIVA: Yes conjunctivae normal Neck/C-Spine: COMMON NORMALS: full ROM and supple Chest: COMMONS NORMALS: normal inspection of the chest and normal palpation of entire chest wall Resp: COMMON NORMALS: normal respiratory effort, No retractions, No use of accessory muscles and clear to auscultation bilaterally AUSCULTATION: clear to auscultation bilaterally Cardio: COMMON NORMALS: regular rate, regular rhythm and No murmurs present (Cardio) RATE: regular rate RHYTHM: regular rhythm GI: COMMON NORMALS: Normal to inspection, nondistended, normoactive bowel sounds present, Soft to palpation, non-tender and no masses PALPATION: Yes Soft to palpation Back/Pelvis: OTHER: renderness over right mid back no midline tenderness Extremity: COMMON NORMALS: normal to inspection and full ROM Neuro: COMMON NORMALS: moves all extremities and no focal motor deficits Psych: COMMON NORMALS: mental status grossly normal, Normal thought process present and cooperative THOUGHT PROCESS: Normal thought process present Skin: COMMON NORMALS: no rashes or lesions noted and no wounds GENERAL SKIN EXAM: no rashes or lesions noted Course Vital Signs: Vital signs: Vital Signs Temperature 98 F 04/27/24 20:34 Pulse Rate 108 H 04/27/24 21:12 Respiratory Rate 16 04/27/24 21:12 Blood Pressure 119/79 04/27/24 21:12 Pulse Oximetry 93 04/27/24 21:12 Oxygen Delivery Me thod Nasal Cannula 04/27/24 21:12 Oxygen Flow Rate 2 04/27/24 21:12 MDM - Back Pain/Injury Medical Decision Making Patient presents here he is found to have a pulmonary embolism along with possible pneumonia is likely causing some of his pain and his hypoxia I spoke to the hospitalist will admit at this time he has no signs of any severe heart strain BNP was normal Medical Records I reviewed the patient's medical records. Labs I reviewed the patient's lab results. 04/27/24 21:03 04/27/24 21:03 Radiology Impressions Chest X-Ray 04/27/24 20:38 IMPRESSION: 1. Patchy opacities involving the right lung apex which may reflect acute airspace disease versus parenchymal scarring. 2. Bilateral diffuse chronic interstitial lung changes. Lumbar Spine X-Ray 04/27/24 20:38 IMPRESSION: Extensive degenerative changes involving lumbar spine. No acute bony abnormality. Thoracic Spine X-Ray 04/27/24 20:38 IMPRESSION: Multilevel degenerative changes involving the thoracic spine without fracture. Chest CTA 04/27/24 21:05 IMPRESSION: 1. Bilateral pulmonary emboli as detailed above. No right heart strain. 2. Multifocal airspace disease which may reflect alveolar hemorrhage from pulmonary emboli or pneumonia. 3. Interval decrease in size of right upper lobe mass. 4. Pulmonary emphysematous changes. 5. Atherosclerosis including coronary artery calcification. COMMENTS: THIS REPORT CONTAINS FINDINGS THAT MAY BE CRITICAL TO PATIENT CARE. The exam findings were verbally communicated by me to CATRACHITA ZUÑIGA via telephone conference at 9:50 PM FLOORING INSTALLER on 04/27/2024. The findings were acknowledged and understood. Laboratory Results WBC 13.54 10^3/uL (3.29-11.43) H 04/27/24 21: RBC 4.13 10^6/uL (3.85-5.65) 04/27/24 21: Hgb 13.10 g/dL (11.27-16.99) 04/27/24 21: Hct 40.6 % (37-53) 04/27/24 21: MCV 98.3 fl (82-101) 04/27/24 21: MCH 31.7 pg (27-33) 04/27/24 21: MCHC 32.3 g/dL (30-55) 04/27/24 21: RDW 12.5 % (12.1-15.1) 04/27/24 21:03 Plt Count 255 10^3/cmm (157-399) 04/27/24 21: MPV 8.9 fL (7.4-10.4) 04/27/24 21: Neut % (Auto) 84.6 % 04/27/24 21: Lymph % (Auto) 7.5 % 04/27/24 21: Hart % (Auto) 7.2 % 04/27/24 21: Eos % (Auto) 0.1 % 04/27/24 21: Baso % (Auto) 0.2 % 04/27/24 21: Neut # (Auto) 11.45 10^3/uL (1.8-7.7) H 04/27/24 21:03 Lymph # (Auto) 1.0 10^3/uL (0.8-4.8) 04/27/24 21:03 Hart # (Auto) 1.0 10^3/uL (0.2-0.9) H 04/27/24 21:03 Eos # (Auto) 0.0 10^3/uL (0.0-0.8) 04/27/24 21:03 Baso # (Auto) 0.0 10^3/uL (0.0-0.1) 04/27/24 21:03 Nucleated RBC % (auto) 0 % 04/27/24 21:03 Nucleated RBCs # 0.0 /100WBC 04/27/24 21:03 Sodium 135 mmol/L (136-145) L 04/27/24 21:03 Potassium 4.7 mmol/L (3.5-5.1) 04/27/24 21:03 Chloride 101 mmol/L (98-107) 04/27/24 21:03 Carbon Dioxide 19 mmol/L (22-29) L 04/27/24 21: Anion Gap 19.7 (5-19) H 04/27/24 21:03 BUN 16 mg/dL (8-23) 04/27/24 21:03 Creatinine 0.9 mg/dL (0.7-1.2) 04/27/24 21:03 GFR Calculation Not Reportable 04/27/24 21:03 Glucose 130 mg/dL (65-115) H 04/27/24 21:03 Calculated Osmolality 283 mOsm/kg (285-295) L 04/27/24 21:03 Calcium 9.1 mg/dL (8.5-10.5) 04/27/24 21:03 Total Bilirubin 0.8 mg/dL (0.15-1.2) 04/27/24 21:03 AST 14 U/L (0-40) 04/27/24 21:03 ALT 13 U/L (0-41) 04/27/24 21:03 Alkaline Phosphatase 87 U/L (40-130) 04/27/24 21:03 Troponin T Baseline 39 ng/L (0-15) H 04/27/24 21:03 NT-Pro-B Natriuret Pep 416 pg/mL (0-450) 04/27/24 21:03 Total Protein 6.7 g/dL (6.6-8.7) 04/27/24 21: Albumin 3.9 g/dL (3.5-5.2) 04/27/24 21:03 Globulin 2.8 g/dL (1.3-4.6) 04/27/24 21:03 Lipase 17 U/L (13-60) 04/27/24 21:03 All radiology interpretation(s) finalized by discharge EKG Data EKG 1: I personally reviewed and interpreted this EKG as follows: EKG interpretation date: 04/27/24 EKG interpretation time: 20:35 Interpretation: sinus tach hr [address] elevation qrs 94 qtc 396 Discharge Plan Discharge Patient Disposition: Admitted As Inpatient Clinical Impression: Pulmonary embolism, Hypoxia Prescriptions: No Action atorvastatin 80 mg tablet 80 mg PO BEDTIME Qty: 90 3RF furosemide 40 mg tablet 40 mg PO DAILY PRN (Reason: edema) Qty: 90 1RF omega-3 fatty acids Capsule 500 mg PO BID mecobalamin (vitamin B12) 1,000 mcg tablet,chewable 1,000 mcg PO DAILY cholecalciferol (vitamin D3) 10 mcg (400 unit) capsule 10 mcg PO DAILY Spiriva Respimat 1.25 mcg/actuation mist 2 puff inhalation DAILY Qty: 4 3RF albuterol sulfate [Ventolin HFA] 90 mcg/actuation HFA aerosol inhaler 1 inh inhalation QID PRN (Reason: shortness of breath or wheezing) Qty: 8.5 4RF donepezil 5 mg tablet 5 mg PO DAILY clopidogrel 75 mg tablet 75 mg PO DAILY Qty: 90 3RF tramadol 50 mg tablet 50 mg PO TID PRN (Reason: Pain) citalopram 20 mg tablet 20 mg PO BEDTIME hydroxyzine HCl 25 mg tablet 25 mg PO TID PRN (Reason: Itching) pregabalin 75 mg capsule 75 mg PO BID aspirin 81 mg Tablet,Delayed Release (Dr/Ec) 81 mg PO DAILY Qty: 100 0RF nitroglycerin 0.4 mg Tablet, Sublingual 0.4 mg sublingual Q5M PRN (Reason: Chest Pain) Qty: 25 0RF metoprolol tartrate 25 mg Tablet 25 mg PO Q12H Qty: 180 2RF trazodone 100 mg tablet 100 mg PO DAILY Qty: 20 0RF Referrals: Minh Maher [Primary Care Provider] - Coding Level of Care Code ED Hat Brim [employer] Crown Laminating Operator for Chg Fwfranco
[2024-04-27 21:04] VITALS: RESP 20; O2SAT 90
[2024-04-27] MEDS: ondansetron 2 mg/ML SDV 2 mL 4 MG IVP (21:04)
[2024-04-27] MEDS: morphine 4 mg/mL SDV 1 mL IVP (21:04)
--- NOTE | 2024-04-27 21:04 | ECG_ITS ---
[facility] Test Date: 2024-04-27 Pat Name: Frankie Tolliver Department: Room: Gender: Male Environmental Compliance Engineer: : 1940 Requested By: Ada Villar Order Number: [id number] Reading MD: CODY FORD Measurements Intervals [place] Rate: 113 P: 64 NE: 179 QRS: 57 QRSD: 94 T: 76 QT: 329 QTc: 452 Interpretive Statements SINUS TACHYCARDIA MODERATE ST DEPRESSION [0.05+ mV ST DEPRESSION] No previous ECG available for comparison Electronically Signed On 04-28-2024 18:40:32 DIGITAL SOLUTION ARCHITECT by CODY FORD [id number]
--- NOTE | 2024-04-27 21:05 | CTR_ITS ---
PROCEDURE INFORMATION: Exam: CTA Chest With Contrast Exam date and time: 04/27/2024 9:27 PM Age: 83 years old Clinical indication: Shortness of breath and other: Upper back pain; Prior surgery; Surgery date: 6+ months; Surgery type: Coronary stent; Patient HX: Severe SOB with upper back pain. History of rul mass. TECHNIQUE: Imaging protocol: Computed tomographic angiography of the chest with contrast. Exam focused on the arteries. 3D rendering (Not supervised by radiologist): MIP and/or 3D reconstructed images were created by the technologist. Radiation optimization: All CT scans at this facility use at least one of these dose optimization techniques: automated exposure control; mA and/or kV adjustment per patient size (includes targeted exams where dose is matched to clinical indication); or iterative reconstruction. Contrast material: OMNI 350; Contrast volume: 65 ml; Contrast route: INTRAVENOUS (IV); COMPARISON: CT angio chest w abd pel w con 05/11/2023 10:51 AM RADIATION DOSE METRICS: Total DLP (mGy-cm): 354.14 FINDINGS: Pulmonary arteries: There are filling defects involving the right middle lobe, right lower lobe, left lower lobe and left upper lobe pulmonary arterial segments. Aorta: Calcific plaque involves the thoracic aorta and coronary arteries. The thoracic aorta is free of aneurysm and dissection. Lungs: There is a mass in the right upper lobe measuring 2.3 x 1.3 cm was 2.9 x 1.5 cm. Pulmonary emphysematous changes present. Areas of subpleural ground-glass opacity present in the peripheral aspect of the right lower lobe and left upper lobe. Patchy ground-glass opacities present in the lung bases. Pleural spaces: Unremarkable. No pneumothorax. No pleural effusion. Heart: Unremarkable. No cardiomegaly. No pericardial effusion. Heart RV/LV ratio: The RV to LV ratio is 0.9. Lymph nodes: Unremarkable. No enlarged lymph nodes. Diaphragm: Small hiatal hernia. Bones/joints: Degenerative changes involve the spine. Soft tissues: Unremarkable. CT/CT angio chest PE protcl [id number] IMPRESSION: 1. Bilateral pulmonary emboli as detailed above. No right heart strain. 2. Multifocal airspace disease which may reflect alveolar hemorrhage from pulmonary emboli or pneumonia. 3. Interval decrease in size of right upper lobe mass. 4. Pulmonary emphysematous changes. 5. Atherosclerosis including coronary artery calcification. COMMENTS: THIS REPORT CONTAINS FINDINGS THAT MAY BE CRITICAL TO PATIENT CARE. The exam findings were verbally communicated by me to CATRACHITA ZUÑIGA via telephone conference at 9:50 PM PARIMUTUEL TICKET CHECKER on 04/27/2024. The findings were acknowledged and understood.
[2024-04-27 21:12] VITALS: BP 119/79; PULSE 108; RESP 16; O2SAT 93
[2024-04-27 21:13] LABS: Basophils % 0.2 %; Eosinophils % 0.1 %; Hematocrit 40.6 % (37-53); Lymphocytes % 7.5 %; Mean Corpuscular HGB Conc 32.3 g/dL (30-55); Mean Corpuscular Hemoglobin 31.7 pg (27-33); Mean Corpuscular Volume 98.3 fl (82-101); Mean Platelet Volume 8.9 fL (7.4-10.4); Monocytes % 7.2 %; Neutrophils # 11.45 10^3/uL (1.8-7.7); Neutrophils % 84.6 %; Nucleated Red Blood Cells % 0 %; Platelet Count 255 10^3/cmm (157-399); Red Blood Count 4.13 10^6/uL (3.85-5.65); Red Cell Distribution Width 12.5 % (12.1-15.1); White Blood Count 13.54 10^3/uL (3.29-11.43)
[2024-04-27] MEDS: iohexol 350 mg/mL 500 mL Btl (per mL) IV (21:27)
[2024-04-27 21:39] LABS: Troponin(5th) Baseline 39 ng/L (0-15)
[2024-04-27 21:47] LABS: Alanine Aminotransferase 13 U/L (0-41); Albumin Level 3.9 g/dL (3.5-5.2); Alkaline Phosphatase 87 U/L (40-130); Anion Gap 19.7 (5-19); Aspartate Amino Transferase 14 U/L (0-40); Blood Urea Nitrogen 16 mg/dL (8-23); Calcium 9.1 mg/dL (8.5-10.5); Carbon Dioxide 19 mmol/L (22-29); Chloride 101 mmol/L (98-107); Creatinine Clr Calc Pharmacy 70.0937; Globulin 2.8 g/dL (1.3-4.6); Glucose 130 mg/dL (65-115); Lipase 17 U/L (13-60); NT Pro B Type Natriuretic Pept 416 pg/mL (0-450); Osmolality Calculated 283 mOsm/kg (285-295); Potassium 4.7 mmol/L (3.5-5.1); Sodium 135 mmol/L (136-145); Total Bilirubin 0.8 mg/dL (0.15-1.2); Total Protein 6.7 g/dL (6.6-8.7)
--- NOTE | 2024-04-27 22:03 | P.HP_ITS ---
Providers/Chief Complaint 2 Primary Care Provider: Minh Maher Chief Complaint: back pain History of Present Illness Frankie Tolliver is a 83 year old male with history of 3.5 x 3.7 cm AAA established coronary disease multiple stents, has been on dual antiplatelet therapy since last year April, left lung mass, decided not to pursue treatment because he does not want to travel to any other CAD presented with chief complaint of worsening of shortness of breath. is at the bedside helping with HPI, is stating that for last 1 to 2 weeks patient has been very weak and lethargic, they have not noticed any blood in sputum, vomiting urine or stool, patient has been compliant with his medications, normally take tramadol in the morning for back pain, today he started hurting more and was extremely short of breath that prompted his visit in the ER. Patient has not complained of chest pain, he does not use oxygen at home, no recent falls. thinks there is a possibility for onset of dementia, In the ER workup revealed bilateral PE troponin around 39, patient is requiring 2 L of oxygen, at the bedside: Goals of care discussed: DNR/DNI They still do not want to pursue treatment for cancer stating that Frankie is stubborn and would not pursue any treatment at this point At the time of my evaluation patient is resting well, on 2 L, euvolemic not complaining active pain. Review of Systems 2 Const: Denies: fever(s) Eyes: Denies: change in vision ENMT: Denies: throat pain Card: Denies: chest pain Resp: Reports: dyspnea GI: Denies: abdominal pain Medications/Allergies Home Medications Medication Instructions Recorded Confirmed Last Taken Type aspirin 81 mg tablet,delayed 81 mg PO DAILY #100 tabs 05/12/23 02/08/24 Unknown Rx release citalopram 20 mg tablet 20 mg PO BEDTIME 05/12/23 02/08/24 05/11/23 History hydroxyzine HCl 25 mg tablet 25 mg PO TID PRN Itching 05/12/23 02/08/24 Unknown History metoprolol tartrate 25 mg tablet 25 mg PO Q12H #180 tabs 05/12/23 02/08/24 Unknown Rx nitroglycerin 0.4 mg sublingual 0.4 mg sublingual Q5M PRN Chest 05/12/23 02/08/24 Unknown Rx tablet Pain #25 tabs pregabalin 75 mg capsule 75 mg PO BID 05/12/23 02/08/24 Unknown History tramadol 50 mg tablet 50 mg PO TID PRN Pain 05/12/23 02/08/24 Unknown History trazodone 100 mg tablet 100 mg PO DAILY #20 tabs 05/12/23 02/08/24 Unknown Rx clopidogrel 75 mg tablet 75 mg PO DAILY #90 tabs 05/18/23 02/08/24 Unknown Rx atorvastatin 80 mg tablet 80 mg PO BEDTIME #90 tabs 05/20/23 02/08/24 Unknown Rx albuterol sulfate 90 mcg/actuation 1 inh inhalation QID PRN shortness 08/15/23 02/08/24 Unknown Rx aerosol inhaler (Ventolin HFA) of breath or wheezing #8.5 grams cholecalciferol (vitamin D3) 10 10 mcg PO DAILY 08/15/23 02/08/24 Unknown History mcg (400 unit) capsule mecobalamin (vitamin B12) 1,000 1,000 mcg PO DAILY 08/15/23 02/08/24 Unknown History mcg chewable tablet omega-3 fatty acids 500 mg PO BID 08/15/23 02/08/24 Unknown History tiotropium bromide 1.25 2 puff inhalation DAILY #4 grams 08/15/23 02/08/24 Unknown Rx mcg/actuation mist for inhalation (Spiriva Respimat) donepezil 5 mg tablet 5 mg PO DAILY 09/15/23 02/08/24 Unknown History furosemide 40 mg tablet 40 mg PO DAILY PRN edema #90 tabs 02/08/24 02/08/24 Unknown Rx Allergies Allergy/AdvReac Type Severity Reaction Status Date / Time No Known Allergies Allergy Verified 02/08/24 10:02 PFSH Acute 2 PFSH: Medical History Mass of upper lobe of right lung Tobacco abuse Essential hypertension CAD (coronary artery disease) Acute [place], inferior wall Surgical History History of coronary artery stent placement Family History Mother CAD (coronary artery disease) Sister CAD (coronary artery disease) Son CAD (coronary artery disease) Denies family history of Diabetes Cardiomyopathy Social History Smoking and tobacco/nicotine status: former use of tobacco/nicotine Alcohol intake: never Substance/Drug Use: current Vitals/I&O/Wt Last Vital Signs Temp 98 F 04/27/24 20:34 Pulse 108 H 04/27/24 21:12 Resp 16 04/27/24 21:12 BP 119/79 04/27/24 21:12 Pulse Ox 93 04/27/24 21:12 O2 Del Method Nasal Cannula 04/27/24 21:12 O2 Flow Rate 2 04/27/24 21:12 04/27/24 04/27/24 04/27/24 06:59 14:59 22:59 Intake Total 0 / 0 Balance 0 / 0 Weight last 48 hrs Weight 79.379 kg Physical Exam 2 Narrative: Currently on 2 L Awake and alert GCS 15 Pleasant and cooperative Nonfocal neuroexam Currently on 2 L no audible stridor or wheezing Euvolemic S1, S2 at the bedside Hypertensive Lower extremity without significant edema Data 04/27/24 21:03 04/27/24 21:03 Micro: Microbiology 04/27/24 21:17 Blood Culture - Preliminary Blood SPECIMEN COLLECTED 04/27/24 21:09 Blood Culture - Preliminary Blood SPECIMEN COLLECTED A&P Assessment and plan (1) CAD (coronary artery disease): Qualifiers: Coronary Disease-Associated Artery/Lesion type: cherokee artery [place] vs. transplanted heart: cherokee heart Associated angina: without angina Qualified Code(s): I25.10 - Atherosclerotic heart disease of cherokee coronary artery without angina pectoris (2) History of coronary artery stent placement: (3) Abdominal aortic aneurysm: Qualifiers: Abdominal aorta location: infrarenal aorta Presence of rupture: without rupture Qualified Code(s): I71.43 - Infrarenal abdominal aortic aneurysm, without rupture (4) Pulmonary embolism: (5) Mass of upper lobe of right lung: (6) Emphysema lung: (7) Hypoxia: Plan Bilateral PE Like related to underlying lung mass Start patient on therapeutic Lovenox Request troponin and echo Hemodynamically stable Acute hypoxia requiring 2 L Does not use oxygen at home underlying COPD, Does not want to pursue treatment for his right upper lobe lobe mass Lower back pain chronic: Continue tramadol Onset of dementia? thinks he is more forgetful and has been confused lately, Bilateral airspace disease: Concern for pneumonia versus alveolar hemorrhage No hemoptysis, hemoglobin stable Currently on therapeutic Lovenox History of coronary disease hold aspirin, continue Plavix with Lovenox for now Monitor H&H AAA: No active abdominal pain, back pain is chronic: Hemodynamically stable Request PT in the morning Cardiac diet Goals of care discussed with his : Patient is DNR/DNI Attestations 2 Medical Necessity Statement*: More than 2 midnights anticipated for monitoring of pneumonia, alveolar hemorrhage, bilateral PE Diagnoses Coronary artery disease involving cherokee coronary artery of cherokee heart without angina pectoris I25.10 Coronary Disease-Associated Artery/Lesion type: cherokee artery [place] vs. transplanted heart: cherokee heart Associated angina: without angina History of coronary artery stent placement Z95.5 Infrarenal abdominal aortic aneurysm (AAA) without rupture I71.43 Abdominal aorta location: infrarenal aorta Presence of rupture: without rupture Pulmonary embolism I26.99 Mass of upper lobe of right lung R91.8 Emphysema lung J43.9 Hypoxia R09.02
[2024-04-27] MEDS: cefTRIAXone 1,000 mg SDV 1000 MG IVP (22:14)
[2024-04-27] MEDS: AZITHROMYCIN ADD-Vantage 500 MG in 0.9% NaCl ADD-Vantage 250 ML 250 MG IV (22:14)
[2024-04-27] MEDS: enoxaparin 80 mg/0.8 mL Syringe SUBCUT (22:15)
[2024-04-27 22:20] VITALS: BP 111/76; PULSE 104; RESP 16; O2SAT 96
--- NOTE | 2024-04-27 23:04 | ECG_ITS ---
[facility] Test Date: 2024-04-28 Pat Name: Frankie Tolliver Department: Room: 272 Gender: Male Spacer Type Bar And Segment: : 1940 Requested By: Ada Villar Order Number: [id number] Reading MD: CODY FORD Measurements Intervals [place] Rate: 106 P: 68 [place]: 185 QRS: 63 QRSD: 98 T: 74 QT: 338 QTc: 450 Interpretive Statements SINUS TACHYCARDIA NONSPECIFIC ST & T-WAVE ABNORMALITY ABNORMAL RHYTHM ECG Compared to ECG 04/27/2024 20:35:41 T-wave abnormality now present ST (T wave) deviation no longer present Electronically Signed On 04-28-2024 18:41:59 OFFICER LIEUTENANT by CODY FORD [email or web address]
[2024-04-27 23:12] LABS: Adenovirus Not Detected (NOT DETECT); Chlamydia Pneumoniae Not Detected (NOT DETECT); Coronavirus 229E,HKU1,NL63,OC4 Not Detected (NOT DETECT); Human Metapneumovirus Not Detected (NOT DETECT); Human Rhinovirus/Enterovirus Not Detected (NOT DETECT); Influenza A Not Detected (NOT DETECT); Influenza A H1 Not Detected (NOT DETECT); Influenza A H1-2009 Not Detected (NOT DETECT); Influenza A H3 Not Detected (NOT DETECT); Influenza B Not Detected (NOT DETECT); Mycoplasma Pneumoniae Not Detected (NOT DETECT); Parainfluenza Virus Type 1 Not Detected (NOT DETECT); Parainfluenza Virus Type 2 Not Detected (NOT DETECT); Parainfluenza Virus Type 3 Not Detected (NOT DETECT); Parainfluenza Virus Type 4 Not Detected (NOT DETECT); Respiratory Syncytial Virus A Not Detected (NOT DETECT); Respiratory Syncytial Virus B Not Detected (NOT DETECT); SARS-COV-2 Not Detected (NOT DETECT)
[2024-04-27 23:21] VITALS: BP 111/76; PULSE 96; RESP 16; O2SAT 97
[2024-04-27 23:35] VITALS: BP 109/78; PULSE 97; RESP 20; O2SAT 97
--- NOTE | 2024-04-27 23:39 | PC.NURSE ---
ATTEMPTED TO CALL REPORT AT [id number]
[2024-04-27 23:47] LABS: Troponin 5 2HR 40.08 ng/L (0-15); Troponin 5 2HR Delta 1.08 ABS# (0-10)
[2024-04-28] VITALS (16 sets, daily range): BP systolic 106–144; BP diastolic 67–78; PULSE 84–118; RESP 18–21; TEMP 36.5–37.2; O2SAT 90–97; BMI 24.2
--- NOTE | 2024-04-28 00:21 | USCV_ITS ---
Frankie Tolliver Age: 83 Gender: M : 1940 Exam Date: 04/28/2024 08:20 Ordering Phys: Stanley Mallory MD Technologist: Michael Herrmann [place] [facility] [place]: [place] BP: / HR: 103 Rhythm: Sinus Technical Quality: Adequate MEASUREMENTS (Male / Female) Normal Values 2D ECHO LV Diastolic Diameter PLAX 2.6 cm 4.2 - 5.9 / 3.9 - 5.3 cm IVS Diastolic Thickness 0.8 cm 0.6 - 1.0 / 0.6 - 0.9 cm IVS Systolic Thickness 1.0 cm LVPW Diastolic Thickness 1.7 cm 0.6 - 1.0 / 0.6 - 0.9 cm LVPW Systolic Thickness 1.6 cm LVOT Diameter 2.7 cm LV Ejection Fraction 2D Teich 58.9 % LV Ejection Fraction MOD 4C 80.2 % LV Ejection Fraction MOD 2C 51.5 % LV Ejection Fraction 2C AL 55.3 % LA Diameter 3.3 cm RA Systolic Volume 4C AL 21.6 ml RA Systolic Volume 4C MOD 21.6 ml LA Sys Volume AL 35.3 cm cubed LA Sys Volume Index AL 17.4 cm cubed/m squared Aorta at Sinotubular Diameter 2.3 cm IVC Diameter 1.6 cm M-MODE LA Ao Ratio MM 1.0 AV Cusp Separation MM 1.8 cm DOPPLER AV Peak Velocity 157.0 cm/s LVOT Peak Velocity 153.0 cm/s AV Area Cont Eq vti 5.0 cm squared AV Area Cont Eq pk 5.7 cm squared MV Peak Velocity 109.0 cm/s MV Area PHT 9.7 cm squared Mitral E to A Ratio 0.6 TV Peak Velocity 297.5 cm/s TR Peak Velocity 406.0 cm/s TR Peak Gradient 65.9 mmHg TR Mean Velocity 328.0 cm/s TR Mean Gradient 45.4 mmHg TR Velocity Time Integral 97.7 cm PV Peak Velocity 109.0 cm/s RV Ejection Time 0.2 s FINDINGS Left Ventricle Normal left ventricular size, systolic function and wall thickness, with no regional wall motion abnormalities. Normal left ventricular size and systolic function, EF 60%. Grade I/IV diastolic dysfunction (abnormal relaxation filling pattern), normal to mildly elevated filling pressures. Right Ventricle The right ventricle is normal in size and function. Right Atrium The right atrium is normal in size. Left Atrium The left atrium is normal in size. Mitral Valve Mildly thickened mitral valve. Mild mitral annular calcification. No mitral valve stenosis. Aortic Valve Mild aortic valve calcification. No aortic valve stenosis. Mild aortic valve regurgitation. Tricuspid Valve Structurally normal tricuspid valve without significant stenosis or regurgitation. Pulmonic Valve Structurally normal pulmonic valve without significant stenosis. There is no pulmonic regurgitation. Pericardium Normal pericardium without effusion. Aorta Normal ascending aorta dimension. IVC The inferior vena cava appears normal. CONCLUSIONS Normal left ventricular size, systolic function and wall thickness, with no regional wall motion abnormalities. Normal left ventricular size and systolic function, EF 60%. Grade I/IV diastolic dysfunction (abnormal relaxation filling pattern), normal to mildly elevated filling pressures. Mildly thickened mitral valve. Mild mitral annular calcification. No mitral valve stenosis. Mild aortic valve calcification. No aortic valve stenosis. Mild aortic valve regurgitation. There is no pericardial effusion. Right atrial pressure is around 5 mm of mercury. Stanley Sharma MD (Electronically Signed) Final Date: 29 April 2024 17:30 S
--- NOTE | 2024-04-28 00:50 | PC.NURSE ---
Admission Patient wearing jeans, refuses to remove them at this time. When speaking with patient at bedside regarding patient skin assessment, states he does not have any wounds or anything open on his skin .
[2024-04-28] MEDS: ipratropium-albuterol 3 mL Neb INHALATION ×4 (00:59→22:09)
--- NOTE | 2024-04-28 03:04 | ECG_ITS ---
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
[2024-04-28 04:52] LABS: Basophils % 0.2 %; Hematocrit 35.9 % (37-53); Lymphocytes # 1.3 10^3/uL (0.8-4.8); Mean Corpuscular HGB Conc 33.1 g/dL (30-55); Mean Corpuscular Hemoglobin 31.3 pg (27-33); Mean Corpuscular Volume 94.5 fl (82-101); Mean Platelet Volume 9.1 fL (7.4-10.4); Monocytes # 1.2 10^3/uL (0.2-0.9); Neutrophils # 10.74 10^3/uL (1.8-7.7); Neutrophils % 80.4 %; Nucleated Red Blood Cells % 0 %; Platelet Count 221 10^3/cmm (157-399); Red Cell Distribution Width 12.6 % (12.1-15.1); White Blood Count 13.36 10^3/uL (3.29-11.43)
[2024-04-28 05:06] LABS: Troponin 5 6HR 44.14 ng/L (0-15); Troponin 5 6HR Delta 5.14 ng/L (0-12)
[2024-04-28 05:07] LABS: Anion Gap 19.5 (5-19); Blood Urea Nitrogen 19 mg/dL (8-23); C Reactive Protein 129.3 mg/L (0.0-4.9); Calcium 8.7 mg/dL (8.5-10.5); Carbon Dioxide 21 mmol/L (22-29); Chloride 100 mmol/L (98-107); Creatinine Clr Calc Pharmacy 70.7106; Glucose 130 mg/dL (65-115); Magnesium 1.9 mg/dL (1.7-2.3); Osmolality Calculated 286 mOsm/kg (285-295); Phosphorus 3.9 mg/dL (2.5-4.5); Potassium 4.5 mmol/L (3.5-5.1); Sodium 136 mmol/L (136-145)
[2024-04-28] MEDS: TRAMadol 50 mg Tablet PO ×2 (06:49→17:51)
[2024-04-28] MEDS: enoxaparin 80 mg/0.8 mL Syringe SUBCUT ×2 (09:18→20:40)
[2024-04-28] MEDS: doxycycline 100 mg Tablet PO (09:18)
[2024-04-28] MEDS: metoprolol tartrate 25 mg Tablet 12.5 MG PO ×2 (09:18→17:52)
[2024-04-28] MEDS: pantoprazole 40 mg SDV IVP ×2 (09:18→17:51)
[2024-04-28] MEDS: sennosides-docusate Tablet 2 TAB PO ×2 (09:18→17:52)
[2024-04-28] MEDS: donepezil 5 MG Tablet PO (09:19)
[2024-04-28] MEDS: cefTRIAXone 1,000 MG in sodium chloride 0.9% (plus) 50 ML 100 MG IV (09:19)
[2024-04-28] MEDS: morphine IR 15 mg Tablet PO (12:36)
[2024-04-28 14:05] LABS: Estmated Average Glucose 117; Hemoglobin A1C 5.7 % (4.0-6.0)
--- NOTE | 2024-04-28 14:18 | W.PM.EVENTAC ---
Event Note Event Note: Pulm and overnight. Seen with at bedside. Patient on 2 L of oxygen supplementation. Complaining of pain in the right side of his back. Denies any nausea, vomiting. Patient looks uncomfortable because of pain. Vitals appreciated. Currently on 3 L of oxygen supplementation Imaging and blood work appreciated. Consistent with multifocal right-sided PE with concerns for possible alveolar hemorrhage versus possible consolidation. Respiratory viral panel negative Plan: Check urinalysis, bacterial antigen. For now continue with treatment for community-acquired pneumonia with ceftriaxone and azithromycin. Switch to [place] 5 mg every 6 hours for pain. Add lidocaine patch. Pain most likely in setting of pulmonary infarct. Continue with full dose Lovenox 1 mg/kg body weight every 12 hourly. Pulmicort twice daily, DuoNeb every 6 hour. Oxygen supplementation keeping saturation over 90%. Continue with home dose of Celexa, metoprolol, trazodone as needed, pregabalin. Moderate MDM includes number and complexity of problems actively addressed during encounter, amount and/or complexity of data reviewed/ordered (Adding pain medication, monitoring labs, restarting and reconciling home medications) [ previous or external records, resulted lab(s)/test(s), ordered lab(s)/test(s), independent historian, independent test interpretation and other healthcare professional discussion] and described risk of complication, morbidity or mortality of management as documented
[2024-04-28 14:19] LABS: Procalcitonin 0.33 ng/mL (0-0.5); Thyroid Stimulating Hormone 2.63 uIU/mL (0.27-4.20); Vitamin B12 1514 pg/mL (232-1245)
[2024-04-28 14:30] LABS: Iron 14 ug/dL (59-158); Percent Saturation 7.4 % (20-50); Total Iron Binding Capacity 187 mcg/dl; Unsaturated Iron Binding 173 ug/dL (112-347)
[2024-04-28] MEDS: azithromycin 250 mg Tablet 500 MG PO (15:27)
[2024-04-28] MEDS: lidocaine 5% Patch 1 PATCH TOPICAL ×2 (15:28→20:40)
[2024-04-28 16:09] LABS: Bilirubin Urine Negative (Negative); Blood Urine 1+ (Negative); Glucose Urine UA Negative (Normal); Ketones Urine Trace (Negative); Leukocyte Esterase Urine Negative (Negative); Nitrate Urine Negative (Negative); Protein Urine 1+ (Negative); Urine Appearance Clear (CLEAR); Urine Color Dark Yellow (Yellow); pH Urine 5.5 (5-7)
[2024-04-28 16:11] LABS: Add Urine Microscopic? YES; Hyaline Casts Urine 8.67 /lpf; Squamous Epithelial Cell Urine 0-5 /hpf (0-5); WBC Urine 0-5 /hpf (0-5)
[2024-04-28 16:19] LABS: Bacteria Urine 1+ /hpf; Mucus Urine 1+ /hpf; Specific Gravity, Urine 1.045 (1.005-1.030); UA Slide Review UA Slide Review Perf
[2024-04-28] MEDS: pregabalin 75 mg Capsule PO (17:51)
[2024-04-28] MEDS: citalopram 20 mg Tablet PO (20:40)
[2024-04-28] MEDS: budesonide 0.5 mg/2 mL Neb INHALATION (22:09)
[2024-04-29] VITALS (7 sets, daily range): BP systolic 124–133; BP diastolic 69–76; PULSE 75–94; RESP 18; TEMP 36.9–37.2; O2SAT 84–97
[2024-04-29 05:33] LABS: Basophils % 0.2 %; Eosinophils % 0.2 %; Hematocrit 34.1 % (37-53); Lymphocytes # 1.4 10^3/uL (0.8-4.8); Mean Corpuscular HGB Conc 33.4 g/dL (30-55); Mean Corpuscular Hemoglobin 31.6 pg (27-33); Mean Corpuscular Volume 94.5 fl (82-101); Mean Platelet Volume 9.5 fL (7.4-10.4); Monocytes # 1.2 10^3/uL (0.2-0.9); Neutrophils # 10.16 10^3/uL (1.8-7.7); Neutrophils % 79.1 %; Nucleated Red Blood Cells % 0 %; Platelet Count 251 10^3/cmm (157-399); Red Blood Count 3.61 10^6/uL (3.85-5.65); Red Cell Distribution Width 12.6 % (12.1-15.1); White Blood Count 12.87 10^3/uL (3.29-11.43)
[2024-04-29 05:49] LABS: Alanine Aminotransferase 10 U/L (0-41); Albumin Level 3.4 g/dL (3.5-5.2); Alkaline Phosphatase 78 U/L (40-130); Anion Gap 15.4 (5-19); Aspartate Amino Transferase 12 U/L (0-40); Blood Urea Nitrogen 21 mg/dL (8-23); Calcium 9.3 mg/dL (8.5-10.5); Carbon Dioxide 22 mmol/L (22-29); Chloride 102 mmol/L (98-107); Creatinine Clr Calc Pharmacy 63.4497; Glucose 116 mg/dL (65-115); Osmolality Calculated 284 mOsm/kg (285-295); Potassium 4.4 mmol/L (3.5-5.1); Sodium 135 mmol/L (136-145); Total Bilirubin 0.6 mg/dL (0.15-1.2); Total Protein 6.4 g/dL (6.6-8.7)
[2024-04-29 05:51] LABS: Chol HDL Ratio 3.43 mg/dL (1.0-5.00); Cholesterol 151 mg/dL (0-200); HDL Cholesterol 44 mg/dL (60-100); LDL Cholesterol Calculated 96 mg/dL (50-129); Triglycerides 53 mg/dL (0-150); VLDL Cholestrol Calculation 11 mg/dL (0-30)
[2024-04-29 06:30] LABS: Folate Level 9.9 ng/mL (4.5-32.2)
--- NOTE | 2024-04-29 07:37 | PC.NURSE ---
pt refuses to keep nasal canula on
[2024-04-29] MEDS: donepezil 5 MG Tablet PO (08:45)
[2024-04-29] MEDS: TRAMadol 50 mg Tablet PO (08:45)
[2024-04-29] MEDS: pantoprazole 40 mg SDV IVP (08:45)
[2024-04-29] MEDS: azithromycin 250 mg Tablet 500 MG PO (08:45)
[2024-04-29] MEDS: sennosides-docusate Tablet 2 TAB PO (08:45)
[2024-04-29] MEDS: enoxaparin 80 mg/0.8 mL Syringe SUBCUT (08:45)
[2024-04-29] MEDS: pregabalin 75 mg Capsule PO (08:45)
[2024-04-29] MEDS: lidocaine 5% Patch 1 PATCH TOPICAL (08:46)
[2024-04-29] MEDS: cefTRIAXone 1,000 MG in sodium chloride 0.9% (plus) 50 ML 100 MG IV (08:46)
[2024-04-29] MEDS: metoprolol tartrate 25 mg Tablet 12.5 MG PO (08:46)
[2024-04-29] MEDS: ipratropium-albuterol 3 mL Neb INHALATION (09:35)
[2024-04-29] MEDS: budesonide 0.5 mg/2 mL Neb INHALATION (09:35)
--- NOTE | 2024-04-29 12:04 | P.DS_ITS ---
Discharge Providers Date of Admission: 04/27/24 22:15 Date of Discharge: April 29, 2024 Attending Provider at Admission: Stanley Mallory MD Attending Provider at Discharge: Yossi Castillo MD Primary Care Provider: Minh Maher Diagnoses at Discharge Discharge Diagnosis (1) CAD (coronary artery disease): Status: Acute Qualifiers: Associated angina: without angina Coronary Disease-Associated Artery/Lesion type: y[place]k artery [place] vs. transplanted heart: yurok heart Qualified Code(s): I25.10 - Atherosclerotic heart disease of yurok coronary artery without angina pectoris (2) History of coronary artery stent placement: Status: Acute (3) Abdominal aortic aneurysm: Status: Acute Qualifiers: Abdominal aorta location: infrarenal aorta Presence of rupture: without rupture Qualified Code(s): I71.43 - Infrarenal abdominal aortic aneurysm, without rupture (4) Pulmonary embolism: Status: Acute (5) Mass of upper lobe of right lung: Status: Acute (6) Emphysema lung: Status: Acute (7) Hypoxia: Status: Acute Reason for Visit Reason for Visit: back pain Brief History: Frankie Tolliver is a 83 year old male with history of 3.5 x 3.7 cm AAA established coronary disease multiple stents, has been on dual antiplatelet therapy since last year April, left lung mass, decided not to pursue treatment because he does not want to travel to any other CAD presented with chief complaint of worsening of shortness of breath. is at the bedside helping with HPI, is stating that for last 1 to 2 weeks patient has been very weak and lethargic, they have not noticed any blood in sputum, vomiting urine or stool, patient has been compliant with his medications, normally take tramadol in the morning for back pain, today he started hurting more and was extremely short of breath that prompted his visit in the ER. Patient has not complained of chest pain, he does not use oxygen at home, no re cent falls. thinks there is a possibility for onset of dementia, In the ER workup revealed bilateral PE troponin around 39, patient is requiring 2 L of oxygen, at the bedside: Goals of care discussed: DNR/DNI They still do not want to pursue treatment for cancer stating that Frankie is stubborn and would not pursue any treatment at this point At the time of my evaluation patient is resting well, on 2 L, euvolemic not complaining active pain. Hospital Course Hospital Course Patient was admitted to rehab for further evaluation and management of hypoxia in setting of pulmonary embolism concerns for possible pulmonary infarction without concerns for right heart strain. He was started on full dose a nticoagulation. Patient has remained hemodynamically stable and afebrile. CT imaging was concerning for possible pulmonary infarction with hemorrhage versus pneumonia due to consolidation. He has been discharged in medically stable condition on anticoagulation with Eliquis 10 mg twice daily for 7 days followed by 5 mg twice daily after home O2 evaluation. He is also being discharged on oral antibiotics for 5 more days and steroid taper. He is to follow-up with his primary care provider within next 2 weeks. Home health will be arranged once case management is available to weekdays. Lidocaine patch has been ordered given concerns for pleuritic pain. Physical Exam Narrative: General: No acute distress, AO x3, chronically sick appearing. HEENT: PERRLA, pupils bilaterally equal and reactive Chest: Normal vesicular breath sounds, no added sounds, equal good air entry bilaterally CVS: S1-S2 regular, no murmurs, no tachycardia, no gallops, no rubs Abdomen: Soft, nontender, no organomegaly, bowel sounds present Neuro: No focal deficits, no facial deformity, AO x3, power 5/5 in all limbs Discharge Data Studies Completed and Pending Completed Studies During Hospitalization Category Date Time Status CTA chest [CT angio chest PE protcl 90475] Stat Cat Scan 04/27/24 21:05 Completed XR chest 1V portable [id number] Stat Exams 04/27/24 20:38 Completed XR lumbar spine 2-3V* [id number] Stat Exams 04/27/24 20:38 Completed XR thoracic spine 3V* [id number] Stat Exams 04/27/24 20:38 Completed Pending at discharge Category Date Time Status Blood Culture Stat Lab 04/27/24 21:17 Results MAG [Magnesium] AM LABS Lab 04/30/24 04:00 Ordered MAG [Magnesium] AM LABS Lab 05/01/24 04:00 Ordered CV. echo complete* [id number] Routine Ultrasound 04/28/24 00:21 Taken Radiology Impressions Chest X-Ray 04/27/24 20:38 IMPRESSION: 1. Patchy opacities involving the right lung apex which may reflect acute airspace disease versus parenchymal scarring. 2. Bilateral diffuse chronic interstitial lung changes. Lumbar Spine X-Ray 04/27/24 20:38 IMPRESSION: Extensive degenerative changes involving lumbar spine. No acute bony abnormality. Thoracic Spine X-Ray 04/27/24 20:38 IMPRESSION: Multilevel degenerative changes involving the thoracic spine without fracture. Chest CTA 04/27/24 21:05 IMPRESSION: 1. Bilateral pulmonary emboli as detailed above. No right heart strain. 2. Multifocal airspace disease which may reflect alveolar hemorrhage from pulmonary emboli or pneumonia. 3. Interval decrease in size of right upper lobe mass. 4. Pulmonary emphysematous changes. 5. Atherosclerosis including coronary artery calcification. COMMENTS: THIS REPORT CONTAINS FINDINGS THAT MAY BE CRITICAL TO PATIENT CARE. The exam findings were verbally communicated by me to CATRACHITA ZUÑIGA via telephone conference at 9:50 PM SENIOR ENGINEERING SPECIALIST on 04/27/2024. The findings were acknowledged and understood. Laboratory Results WBC 12.87 10^3/uL (3.29-11.43) H 04/29/24 05:06 RBC 3.61 10^6/uL (3.85-5.65) L 04/29/24 05:06 Hgb 11.40 g/dL (11.27-16.99) 04/29/24 05:06 Hct 34.1 % (37-53) L 04/29/24 05:06 MCV 94.5 fl (82-101) 04/29/24 05:06 MCH 31.6 pg (27-33) 04/29/24 05:06 MCHC 33.4 g/dL (30-55) 04/29/24 05:06 RDW 12.6 % (12.1-15.1) 04/29/24 05:06 Plt Count 251 10^3/cmm (157-399) 04/29/24 05:06 MPV 9.5 fL (7.4-10.4) 04/29/24 05:06 Neut % (Auto) 79.1 % 04/29/24 05:06 Lymph % (Auto) 11.0 % 04/29/24 05:06 [place] % (Auto) 9.0 % 04/29/24 05:06 Eos % (Auto) 0.2 % 04/29/24 05:06 Baso % (Auto) 0.2 % 04/29/24 05:06 Neut # (Auto) 10.16 10^3/uL (1.8-7.7) H 04/29/24 05:06 Lymph # (Auto) 1.4 10^3/uL (0.8-4.8) 04/29/24 05:06 [place] # (Auto) 1.2 10^3/uL (0.2-0.9) H 04/29/24 05:06 Eos # (Auto) 0.0 10^3/uL (0.0-0.8) 04/29/24 05:06 Baso # (Auto) 0.0 10^3/uL (0.0-0.1) 04/29/24 05:06 Nucleated RBC % (auto) 0 % 04/29/24 05:06 Nucleated RBCs # 0.0 /100WBC 04/29/24 05:06 Sodium 135 mmol/L (136-145) L 04/29/24 05:06 Potassium 4.4 mmol/L (3.5-5.1) 04/29/24 05:06 Chloride 102 mmol/L (98-107) 04/29/24 05:06 Carbon Dioxide 22 mmol/L (22-29) 04/29/24 05:06 Anion Gap 15.4 (5-19) 04/29/24 05:06 BUN 21 mg/dL (8-23) 04/29/24 05:06 Creatinine 1.0 mg/dL (0.7-1.2) 04/29/24 05:06 GFR Calculation Not Reportable 04/29/24 05:06 Glucose 116 mg/dL (65-115) H 04/29/24 05:06 Estimat Average Glucose 117 04/28/24 04:27 Hemoglobin A1c 5.7 % (4.0-6.0) 04/28/24 04:27 Calculated Osmolality 284 mOsm/kg (285-295) L 04/29/24 05:06 Calcium 9.3 mg/dL (8.5-10.5) 04/29/24 05:06 Phosphorus 3.9 mg/dL (2.5-4.5) 04/28/24 04:27 Magnesium 2.0 mg/dL (1.7-2.3) 04/29/24 05:06 Iron 14 ug/dL (59-158) L 04/28/24 04:27 TIBC 187 mcg/dl 04/28/24 04:27 % Saturation 7.4 % (20-50) L 04/28/24 04:27 Unsat Iron Binding 173 ug/dL (112-347) 04/28/24 04:27 Total Bilirubin 0.6 mg/dL (0.15-1.2) 04/29/24 05:06 AST 12 U/L (0-40) 04/29/24 05:06 ALT 10 U/L (0-41) 04/29/24 05:06 Alkaline Phosphatase 78 U/L (40-130) 04/29/24 05:06 Troponin T Baseline 39 ng/L (0-15) H 04/27/24 21:03 Troponin T 120 Minute 40.08 ng/L (0-15) H 04/27/24 23:03 Delta Troponin T 1.08 ABS# (0-10) 04/27/24 23:03 Troponin T Hi Sens 6Hr 44.14 ng/L (0-15) H 04/28/24 04:27 Troponin T Hi Sens 6Hr Delta 5.14 ng/L (0-12) 04/28/24 04:27 C-Reactive Protein 129.3 mg/L (0.0-4.9) H 04/28/24 04:27 NT-Pro-B Natriuret Pep 416 pg/mL (0-450) 04/27/24 21:03 Total Protein 6.4 g/dL (6.6-8.7) L 04/29/24 05:06 Albumin 3.4 g/dL (3.5-5.2) L 04/29/24 05:06 Globulin 3.0 g/dL (1.3-4.6) 04/29/24 05:06 Triglycerides 53 mg/dL (0-150) 04/29/24 05:06 Cholesterol 151 mg/dL (0-200) 04/29/24 05:06 LDL Cholesterol, Calc 96 mg/dL (50-129) 04/29/24 05:06 Total VLDL Cholesterol 11 mg/dL (0-30) 04/29/24 05:06 HDL Cholesterol 44 mg/dL (60-100) L 04/29/24 05:06 Cholesterol/HDL Ratio 3.43 mg/dL (1.0-5.00) 04/29/24 05:06 Lipase 17 U/L (13-60) 04/27/24 21:03 Vitamin B12 1514 pg/mL (232-1245) H 04/28/24 04:27 Folate 9.9 ng/mL (4.5-32.2) 04/29/24 05:06 Procalcitonin 0.33 ng/mL (0-0.5) 04/28/24 04:27 TSH 2.63 uIU/mL (0.27-4.20) 04/28/24 04:27 Urine Color Dark yellow (Yellow) A 04/28/24 15:57 Urine Appearance Clear (CLEAR) 04/28/24 15:57 Urine pH 5.5 (5-7) 04/28/24 15:57 Ur Specific [place] 1.045 (1.005-1.030) H 04/28/24 15:57 Urine Protein 1+ (Negative) A 04/28/24 15:57 Urine Glucose (UA) Negative (Normal) 04/28/24 15:57 Urine Ketones Trace (Negative) 04/28/24 15:57 Urine Blood 1+ (Negative) A 04/28/24 15:57 Urine Nitrate Negative (Negative) 04/28/24 15:57 Urine Bilirubin Negative (Negative) 04/28/24 15:57 Urine Urobilinogen 1.0 mg/dL (Negative) 04/28/24 15:57 Ur Leukocyte Esterase Negative (Negative) 04/28/24 15:57 Urine RBC 3-5 /hpf (0-2) 04/28/24 15:57 Urine WBC 0-5 /hpf (0-5) 04/28/24 15:57 Ur Squamous Epith Cells 0-5 /hpf (0-5) 04/28/24 15:57 Amorphous Sediment Not Reportable 04/28/24 15:57 Urine Bacteria 1+ /hpf (NONE) H 04/28/24 15:57 Hyaline Casts 8.67 /lpf 04/28/24 15:57 Urine Mucus 1+ /hpf 04/28/24 15:57 Adenovirus (PCR) Not detected (NOT DETECT) 04/27/24 21:00 C. pneumoniae DNA (PCR) Not detected (NOT DETECT) 04/27/24 21:00 Coronavirus 229E (PCR) Not detected (NOT DETECT) 04/27/24 21:00 Human Metapneumovir PCR Not detected (NOT DETECT) 04/27/24 21:00 Influenza A (H1) PCR Not detected (NOT DETECT) 04/27/24 21:00 Influ A (H1/09) PCR Not detected (NOT DETECT) 04/27/24 21:00 Influenza A (H3) PCR Not detected (NOT DETECT) 04/27/24 21:00 Influenza Type A (PCR) Not detected (NOT DETECT) 04/27/24 21:00 Influenza Type B (PCR) Not detected (NOT DETECT) 04/27/24 21:00 M. pneumoniae (PCR) Not detected (NOT DETECT) 04/27/24 21:00 Parainfluenza 1 (PCR) Not detected (NOT DETECT) 04/27/24 21:00 Parainfluenza 2 (PCR) Not detected (NOT DETECT) 04/27/24 21:00 Parainfluenza 3 (PCR) Not detected (NOT DETECT) 04/27/24 21:00 Parainfluenza 4 (PCR) Not detected (NOT DETECT) 04/27/24 21:00 RSV Type A (PCR) Not detected (NOT DETECT) 04/27/24 21:00 RSV Type B (PCR) Not detected (NOT DETECT) 04/27/24 21:00 Entero/Rhino (PCR) Not detected (NOT DETECT) 04/27/24 21:00 SARS-CoV-2 (PCR) Not detected (NOT DETECT) 04/27/24 21:00 Vitals Last Vital Signs Temp 98.7 F 04/29/24 11:54 Pulse 76 04/29/24 11:54 Resp 18 04/29/24 09:36 BP 133/73 04/29/24 11:54 Pulse Ox 92 04/29/24 11:54 O2 Del Method Nasal Cannula 04/29/24 11:54 O2 Flow Rate 3 04/29/24 11:54 Discharge Plan Discharge Patient Disposition: Home Condition: Stable Prescriptions: New prednisone 10 mg tablet See Taper PO DIRECTED Qty: 42 0RF Taper: predniSONE 60-10 60 mg Daily for 2 Days and 0 Hour 50 mg Daily for 2 Days and 0 Hour 40 mg Daily for 2 Days and 0 Hour 30 mg Daily for 2 Days and 0 Hour 20 mg Daily for 2 Days and 0 Hour 10 mg Daily for 2 Days and 0 Hour Rx Instructions: see taper instructions levofloxacin 750 mg tablet 750 mg PO Q24H 5 Days Qty: 5 0RF amoxicillin-pot clavulanate 875-125 mg tablet 1 tab PO BID Qty: 10 0RF Eliquis DVT-PE Treat 30D Start 5 mg (74 tabs) tablets,dose pack See Rx Instructions .ROUTE .COMPLEX Qty: 74 0RF Rx Instructions: orally per package directions aspirin 81 mg capsule 81 mg PO DAILY Qty: 30 0RF lidocaine [Lido Russ] 4 % adhesive patch,medicated 1 patch topical DAILY PRN (Reason: pain) Qty: 10 0RF Rx Instructions: may leave on for up to 12 hrs Continued furosemide 40 mg tablet 40 mg PO DAILY PRN (Reason: edema) Qty: 90 1RF omega-3 fatty acids Capsule 500 mg PO BID mecobalamin (vitamin B12) 1,000 mcg tablet,chewable 1,000 mcg PO DAILY cholecalciferol (vitamin D3) 10 mcg (400 unit) capsule 10 mcg PO DAILY tramadol 50 mg tablet 50 mg PO TID PRN (Reason: Pain) citalopram 20 mg tablet 20 mg PO BEDTIME hydroxyzine HCl 25 mg tablet 25 mg PO BID pregabalin 75 mg capsule 75 mg PO BID nitroglycerin 0.4 mg Tablet, Sublingual 0.4 mg sublingual Q5M PRN (Reason: Chest Pain) Qty: 25 0RF trazodone 100 mg Tablet 100 mg PO BEDTIME metoprolol tartrate 25 mg Tablet 12.5 mg PO BID Discontinued clopidogrel 75 mg tablet 75 mg PO DAILY Qty: 90 3RF Discharge Orders: Discharge Order (Routine); Ordered 04/29/24 Ordered By: Yossi Castillo Other Ambulatory Orders: DME: Oxygen (Order) Location: None Selected Ordered By: Yossi Castillo Referrals: Minh Maher [Primary Care Provider] - (Contact your primary care provider for a follow up within 4-7 days.) Patient Instructions: Abdominal Aortic Aneurysm, Prednisone (By mouth), Aspirin (By mouth), Amoxicillin/Clavulanate Potassium (By mouth), Levofloxacin (By mouth), Apixaban (By mouth) (Eliquis), Pulmonary Embolism (DC), Bacterial Pneumonia (DC), Opioid Safety Activity Restrictions/Additional Instructions: Take Eliquis 10 mg twice daily for next 1 week for both milligrams twice daily. Continue steroid taper as prescribed. Take Augmentin and Levaquin which are the antibiotics for next 5 days. Augmentin is 2 times a day and Levaquin is 1 time a day. Follow-up with a primary care provider within next 2 weeks. Discharge Attestations Time Spent in Discharge Care*: greater than 30 min Specific Discharge Activities: educating patient, educating and/or supporting family/caregiver, discussing with pcp/other providers, discussing with behavioral health case manager/social workers/dc planners, documenting/other paperwork and evaluating patient/reviewing data Status at Discharge: Cognitive status at discharge: cognitively intact , Behavioral status at discharge: cooperative , Functional status at discharge: uses cane/walker , Overall status at discharge: patient is progressing back to baseline Quality Metrics Clinical Quality Measures [ Venous Thromboembolism { Contraindication to Overlap Therapy: None; Overlap threrpy ordered; VTE Discharge Education: Education about anticoagulant therapy/Care Notes given, Education about treatment options/disease process, Medication side effects education, INR/lab monitoring education as applicable, Follow-up arranged, Other; Deep Vein Thrombosis/Pulmonary Embolism Present on Admission: Yes;}] Coding Level of Care Code 04529 Total time (in minutes) for Discharge: 60 Diagnoses Coronary artery disease involving [place] coronary artery of [place] heart without angina pectoris I25.10 Associated angina: without angina Coronary Disease-Associated Artery/Lesion type: y[place]k artery [place] vs. transplanted heart: [place]k heart History of coronary artery stent placement Z95.5 Infrarenal abdominal aortic aneurysm (AAA) without rupture I71.43 Abdominal aorta location: infrarenal aorta Presence of rupture: without rupture Pulmonary embolism I26.99 Mass of upper lobe of right lung R91.8 Emphysema lung J43.9 Hypoxia R09.02
[2024-04-29] MEDS: HYDROcodone-acetaminophen 5-325 mg Tablet 1 TAB PO (12:32)
--- NOTE | 2024-04-30 08:08 | PC.SOCIAL ---
Home Health Patient has DC'd from Hospital w/ consult for HH. HH order received and faxed HH order, DC orders, DC summary and H&P to [facility] @ this time.
--- NOTE | 2024-04-30 08:24 | PC.SOCIAL ---
Home [facility] calls and reports they are able to accept. They will call patient and plan for start of care.
== END 2024-04-29 15:24 | disposition home or self-care (01) | DRG 176 ==
LOC: ER 22:23 → MEDSURG 23:23
PROVIDERS: Admitting Provider Internal Medicine; Emergency Provider Emergency Medicine; PCP Family Medicine; Visit Provider Student in an Organized Health Care Education/Training Program
DX: I26.99 Other pulmonary embolism without acute cor pulmonale (principal); I25.10 Atherosclerotic heart disease of native coronary artery without angina pectoris; I71.43 Infrarenal abdominal aortic aneurysm, without rupture; R91.8 Other nonspecific abnormal finding of lung field; J43.9 Emphysema, unspecified; R09.02 Hypoxemia; Z66 Do not resuscitate; G89.29 Other chronic pain; M54.50 Low back pain, unspecified; I10 Essential (primary) hypertension; Z95.5 Presence of coronary angioplasty implant and graft; Z87.891 Personal history of nicotine dependence; I25.2 Old myocardial infarction; Z79.02 Long term (current) use of antithrombotics/antiplatelets; Z79.82 Long term (current) use of aspirin
CPT/HCPCS: 36415; 71045; 71275; 72072; 72100; 80048; 80053; 80061; 81001; 82607; 82746; 83036; 83540; 83550; 83690; 83735; 83880; 84100; 84145; 84443; 84484; 85025; 86140; 86403; 87040; 87486; 87581; 87633; 93005; 93306; 94640; 94664; 94760; 96365; 96372; 96375; 97116; 97161; 99285; J0456; J0696; J1650; J2270; J2405; J2470; J7050; J7626; Q0144

== ENCOUNTER 2024-05-23 09:08 | Emergency (ER) | payer MEDICARE, OTHER, SELFPAY ==
[2024-05-23 09:09] VITALS: BP 170/87; PULSE 85; RESP 18; TEMP 37; O2SAT 94; BMI 24.4
--- NOTE | 2024-05-23 09:12 | XR_ITS ---
WS: [id number] Portable AP upright chest, 05/23/2024 Clinical Data: Shortness of breath Comparison: Portable chest, 04/27/2024 Findings: No nodules, masses or effusions are seen. The heart is normal. The pulmonary vascularity is not increased. No pneumonia or pneumothorax is seen. There are small peripheral pleural scars in the right upper lobe but no active disease. The aortic arch and descending thoracic aorta show tortuosity. Monitor leads are on the chest wall. There is osteoarthritis of both shoulders. XR/XR chest 1V portable [id number] Impression: 1. Cleared opacities in right upper lobe with small residual fibrotic strands. 2. Atherosclerosis.
--- NOTE | 2024-05-23 09:15 | ECG_ITS ---
[facility] Test Date: 2024-05-23 Pat Name: Frankie Tolliver Department: Room: Gender: Male Engagement Liaison: : 1940 Requested By: Lashae Damon Order Number: [id number] Hammer MD: Omari Guadalupe M.D. Measurements Intervals [place] Rate: 78 P: 60 TN: 183 QRS: 50 QRSD: 105 T: 68 QT: 379 QTc: 432 Interpretive Statements SINUS RHYTHM MODERATE ST DEPRESSION [0.05+ mV ST DEPRESSION] Compared to ECG 04/28/2024 03:47:16 ST (T wave) deviation now present Sinus tachycardia no longer present T-wave abnormality no longer present Electronically Signed On 05-24-2024 22:00:02 INFORMATION TECHNOLOGY TECHNICIAN by Omari Guadalupe M.D. [email or web address] [id number]
--- NOTE | 2024-05-23 09:16 | W.ED.SOB ---
HPI - SOB/Dyspnea General: Chief Complaint: Shortness of Breath/Dyspnea Stated Complaint: SOB Time Seen by Provider: 05/23/24 09:09 History of Present Illness: HPI Narrative: 83-year-old man with a history of tobacco dependence, hypertension, coronary artery disease, recently diagnosed pulmonary emboli on Eliquis anticoagulation and a right sided lung mass who presents to the emergency room by ambulance with shortness of breath. He was admitted to the hospital recently and treated for pneumonia. Also discovered pulmonary emboli and started on Eliquis. He has a lung mass that apparently was known.It was discussed that he does not want to pursue treatment of his lung mass. CTA had shown decrease in the size. states that this morning he had rolled over and started having some shortness of breath. This worsened. EMS was called and they brought him to the emergency room. By the time he arrived here he was feeling much better, apparently secondary to receiving a breathing treatment. Apparently does not have any albuterol at home. COPD is listed in his medical problems. Related Data Home Medications ?Medication ?Instructions ?Recorded ?Confirmed citalopram 20 mg tablet 20 mg PO BEDTIME 05/12/23 05/23/24 hydroxyzine HCl 25 mg tablet 25 mg PO BID 05/12/23 05/23/24 pregabalin 75 mg capsule 75 mg PO BID 05/12/23 05/23/24 tramadol 50 mg tablet 50 mg PO TID PRN Pain 05/12/23 05/23/24 cholecalciferol (vitamin D3) 10 10 mcg PO DAILY 08/15/23 05/23/24 mcg (400 unit) capsule mecobalamin (vitamin B12) 1,000 1,000 mcg PO DAILY 08/15/23 05/23/24 mcg chewable tablet omega-3 fatty acids 500 mg PO BID 08/15/23 05/23/24 metoprolol tartrate 25 mg tablet 12.5 mg PO BID 04/28/24 05/23/24 trazodone 100 mg tablet 100 mg PO BEDTIME 04/28/24 05/23/24 Previous Rx's ?Medication ?Instructions ?Recorded nitroglycerin 0.4 mg sublingual 0.4 mg sublingual Q5M PRN Chest 05/12/23 tablet Pain #25 tabs furosemide 40 mg tablet 40 mg PO DAILY PRN edema #90 tabs 02/08/24 apixaban 5 mg (74 tabs) tablets in See Rx Instructions PO .COMPLEX 04/29/24 a dose pack ([employer] DVT-PE Treat #74 ea 30D Start) aspirin 81 mg capsule 81 mg PO DAILY #30 caps 04/29/24 albuterol sulfate 90 mcg/actuation 2 inh inhalation Q4H PRN shortness 05/23/24 aerosol inhaler of breath or wheezing #6.7 grams doxycycline hyclate 100 mg capsule 100 mg PO BID 7 days #14 caps 05/23/24 prednisone 20 mg tablet 60 mg (3 x 20 mg) PO DAILY #20 tabs 05/23/24 Allergies Allergy/AdvReac Type Severity Reaction Status Date / Time No Known Allergies Allergy Verified 02/08/24 10:02 Review of Systems Narrative: Constitutional symptoms: Negative except as documented in HPI. Skin symptoms: Negative except as documented in HPI. Eye symptoms: Negative except as documented in HPI. ENMT symptoms: Negative except as documented in HPI. Respiratory symptoms: Negative except as documented in HPI. Cardiovascular symptoms: Negative except as documented in HPI. Gastrointestinal symptoms: Negative except as documented in HPI. Genitourinary symptoms: Negative except as documented in HPI. Musculoskeletal symptoms: Negative except as documented in HPI. Neurologic symptoms: Negative except as documented in HPI. Psychiatric symptoms: Negative except as documented in HPI. Endocrine symptoms: Negative except as documented in HPI. PFSH ED PFSH: Medical History Mass of upper lobe of right lung Tobacco abuse Essential hypertension CAD (coronary artery disease) Acute OK, inferior wall Surgical History History of coronary artery stent placement Family History Mother CAD (coronary artery disease) Sister CAD (coronary artery disease) Son CAD (coronary artery disease) Denies family history of Diabetes Cardiomyopathy Social History Smoking and tobacco/nicotine status: former use of tobacco/nicotine Alcohol intake: never Substance/Drug Use: current Physical Exam Narrative: EXAM NARRATIVE: General: Alert, no acute distress. Skin: Warm, dry. Head: Normocephalic, atraumatic. Neck: Supple, trachea midline. Eye: Extraocular movements are intact. Ears, nose, mouth and throat: Oral mucosa moist. Cardiovascular: Regular rate and rhythm, Normal peripheral perfusion. Respiratory: some expiratory wheeze, mild increased wob, breath sounds are equal, Symmetrical chest wall expansion. Gastrointestinal: Soft, Nontender, Non distended, Normal bowel sounds. Musculoskeletal: Normal ROM, no deformity. Neurological: Alert and oriented to person, place, time, and situation, No focal neurological deficit observed. Psychiatric: Cooperative, appropriate mood & affect. Course Vital Signs: Vital signs: Vital Signs Temperature 98.6 F 05/23/24 09:09 Pulse Rate 83 05/23/24 10:50 Respiratory Rate 20 H 05/23/24 10:50 Blood Pressure 169/84 05/23/24 10:35 Pulse Oximetry 96 05/23/24 10:50 Oxygen Delivery Me thod Room Air 05/23/24 10:50 MDM - SOB/Dyspnea Medical Decision Making Differential diagnosis for patient with shortness of breath includes but is not limited to and based on the above HPI, review of systems and physical exam: Pneumonia. Bronchitis. Asthma or COPD with acute exacerbation. Acute coronary syndrome / OK. Pulmonary embolism. Anxiety. Congestive heart failure. Viral infections including influenza and Covid-19. Atrial fibrillation. Anxiety. Pleural effusion. Pneumothorax. Orders placed to evaluate differential diagnosis based on the above differential, HPI and physical exam EKG: Time 915. Rate 78. Normal sinus rhythm, nonspecific ST depressions, no ectopy, normal CA & QRS intervals, This was reviewed and interpreted by myself the ER physician at 9:20 AM. Chest x-ray: No acute process. Resolved infiltrates in the right upper lobe. No pneumothorax. This was reviewed and interpreted by myself the emergency room physician. I also reviewed the radiology report. Lab Review: Laboratory results were reviewed and interpreted by myself the emergency room physician. No leukocytosis. No anemia. No renal failure. Troponin is negative. Flu and COVID are negative. I reviewed the patient's medical record. Reexamination: Patient's lungs are clear after breathing treatments. Discussed with that he does not have breathing treatments at home so I am going to write him some albuterol inhaler with a spacer. He is had no altered mental status. No increased work of breathing at this time. Assessment and plan: COPD with acute exacerbation Pulmonary embolism Chronic anticoagulation on Eliquis ?IV Solu-Medrol, updraft. - Discharged home - Discussed findings and plan with patient. Answered any questions. - All laboratory values were reviewed and interpreted personally by myself, the ER physician - All imaging was reviewed and interpreted personally by myself, the ER physician. - Evaluation and treatment of this problem were appropriate in the emergency setting Lab Data 05/23/24 09:20 05/23/24 09:20 Labs/Radiology: Radiology Impressions Chest X-Ray 05/23/24 09:12 Impression: 1. Cleared opacities in right upper lobe with small residual fibrotic strands. 2. Atherosclerosis. Laboratory Results WBC 10.07 10^3/uL (3.29-11.43) 05/23/24 09:20 RBC 3.62 10^6/uL (3.85-5.65) L 05/23/24 09:20 Hgb 11.70 g/dL (11.27-16.99) 05/23/24 09:20 Hct 35.3 % (37-53) L 05/23/24 09:20 MCV 97.5 fl (82-101) 05/23/24 09:20 MCH 32.3 pg (27-33) 05/23/24 09:20 MCHC 33.1 g/dL (30-55) 05/23/24 09:20 RDW 13.8 % (12.1-15.1) 05/23/24 09:20 Plt Count 186 10^3/cmm (157-399) 05/23/24 09:20 MPV 9.4 fL (7.4-10.4) 05/23/24 09:20 Neut % (Auto) 77.6 % 05/23/24 09:20 Lymph % (Auto) 11.8 % 05/23/24 09:20 [place] % (Auto) 7.6 % 05/23/24 09:20 Eos % (Auto) 0.7 % 05/23/24 09:20 Baso % (Auto) 0.4 % 05/23/24 09:20 Neut # (Auto) 7.81 10^3/uL (1.8-7.7) H 05/23/24 09:20 Lymph # (Auto) 1.2 10^3/uL (0.8-4.8) 05/23/24 09:20 [place] # (Auto) 0.8 10^3/uL (0.2-0.9) 05/23/24 09:20 Eos # (Auto) 0.1 10^3/uL (0.0-0.8) 05/23/24 09:20 Baso # (Auto) 0.0 10^3/uL (0.0-0.1) 05/23/24 09:20 Nucleated RBC % (auto) 0 % 05/23/24 09:20 Nucleated RBCs # 0.0 /100WBC 05/23/24 09:20 Specimen Type Arterial 05/23/24 09:16 Sample Site Radial, right 05/23/24 09:16 ABG pH 7.45 (7.35-7.45) 05/23/24 09:16 ABG pCO2 36.5 mmHg (35-45) 05/23/24 09:16 ABG pO2 66.3 mmHg (80.0-100.0) L 05/23/24 09:16 ABG PO2/FiO2 Ratio 315 05/23/24 09:16 ABG HCO3 25.4 mmol/L (22-26) 05/23/24 09:16 ABG O2 Saturation 94.2 05/23/24 09:16 ABG Base Excess 1.5 mmol/L (-2.0-2.0) 05/23/24 09:16 Calvin Test Pos 05/23/24 09:16 A-a O2 Gradient 5.0 mmHg (5-10) 05/23/24 09:16 Hematocrit 38.1 % (42-52) L 05/23/24 09:16 Hgb O2 Saturation 92.7 % (95-100) L 05/23/24 09:16 Carboxyhemoglobin 1.4 %THgb (0.4-20.1) 05/23/24 09:16 Methemoglobin 0.3 % (0.4-1.5) L 05/23/24 09:16 Total Hemoglobin 12.4 g/dL (14-18) L 05/23/24 09:16 Sodium 141.0 mmol/L (131-143) 05/23/24 09:16 Potassium 3.8 mmol/L (3.5-5.0) 05/23/24 09:16 Glucose 106.0 mg/dL (70-115) 05/23/24 09:16 Ionized Calcium 1.2 mmol/L (1.1-1.4) 05/23/24 09:16 O2 Delivery Device Room air 05/23/24 09:16 FiO2 21.0 % 05/23/24 09:16 Continuous Pickling Line Pickler Helper ID [place] 05/23/24 09:16 Sodium 138 mmol/L (136-145) 05/23/24 09:20 Potassium 3.6 mmol/L (3.5-5.1) 05/23/24 09:20 Chloride 101 mmol/L (98-107) 05/23/24 09:20 Carbon Dioxide 25 mmol/L (22-29) 05/23/24 09:20 Anion Gap 15.6 (5-19) 05/23/24 09:20 BUN 17 mg/dL (8-23) 05/23/24 09:20 Creatinine 0.8 mg/dL (0.7-1.2) 05/23/24 09:20 GFR Calculation Not Reportable 05/23/24 09:20 Glucose 105 mg/dL (65-115) 05/23/24 09:20 Calculated Osmolality 288 mOsm/kg (285-295) 05/23/24 09:20 Lactic Acid 2.7 mmol/L (0.5-2.2) H 05/23/24 09:20 Calcium 8.6 mg/dL (8.5-10.5) 05/23/24 09:20 Total Bilirubin 0.7 mg/dL (0.15-1.2) 05/23/24 09:20 AST 34 U/L (0-40) 05/23/24 09:20 ALT 66 U/L (0-41) H 05/23/24 09:20 Alkaline Phosphatase 76 U/L (40-130) 05/23/24 09:20 Troponin T Baseline 34 ng/L (0-15) H 05/23/24 09:20 NT-Pro-B Natriuret Pep 347 pg/mL (0-450) 05/23/24 09:20 Total Protein 6.2 g/dL (6.6-8.7) L 05/23/24 09:20 Albumin 3.5 g/dL (3.5-5.2) 05/23/24 09:20 Globulin 2.7 g/dL (1.3-4.6) 05/23/24 09:20 Coronavirus (PCR) Negative (Negative) 05/23/24 09:30 Influenza A (PCR) Negative (Negative) 05/23/24 09:30 Influenza Type B (PCR) Negative (Negative) 05/23/24 09:30 RSV (PCR) Negative (Negative) 05/23/24 09:30 All radiology interpretation(s) finalized by discharge Discharge Plan Discharge Patient Disposition: Home Clinical Impression: Acute exacerbation of chronic obstructive airways disease Condition: Stable Prescriptions: New doxycycline hyclate 100 mg capsule 100 mg PO BID 7 Days Qty: 14 0RF prednisone 20 mg tablet 60 mg PO DAILY Qty: 20 0RF Rx Instructions: 3 tabs (60 mg) x 3 days. 2 tabs (40 mg) x 3 days. 1 tab (20 mg) x 3 days. 1/2 tab (10 mg) x 4 days albuterol sulfate 90 mcg/actuation HFA aerosol inhaler 2 inh inhalation Q4H PRN (Reason: shortness of breath or wheezing) Qty: 6.7 0RF Rx Instructions: Please provide patient with a spacer No Action furosemide 40 mg tablet 40 mg PO DAILY PRN (Reason: edema) Qty: 90 1RF omega-3 fatty acids Capsule 500 mg PO BID mecobalamin (vitamin B12) 1,000 mcg tablet,chewable 1,000 mcg PO DAILY cholecalciferol (vitamin D3) 10 mcg (400 unit) capsule 10 mcg PO DAILY tramadol 50 mg tablet 50 mg PO TID PRN (Reason: Pain) citalopram 20 mg tablet 20 mg PO BEDTIME hydroxyzine HCl 25 mg tablet 25 mg PO BID pregabalin 75 mg capsule 75 mg PO BID nitroglycerin 0.4 mg Tablet, Sublingual 0.4 mg sublingual Q5M PRN (Reason: Chest Pain) Qty: 25 0RF trazodone 100 mg Tablet 100 mg PO BEDTIME metoprolol tartrate 25 mg Tablet 12.5 mg PO BID Eliquis DVT-PE Treat 30D Start 5 mg (74 tabs) tablets,dose pack See Rx Instructions .ROUTE .COMPLEX Qty: 74 0RF Rx Instructions: orally per package directions aspirin 81 mg capsule 81 mg PO DAILY Qty: 30 0RF Discharge Orders: Discharge ED (Routine); Ordered 05/23/24 Ordered By: Lashae Mitchell Referrals: Minh Maher [Primary Care Provider] - Discharge Diet: Usual diet Discharge Activity: Increase activity as tolerated Patient Instructions: COPD (Chronic Obstructive Pulmonary Disease) (ED), Opioid Safety, Pain Management Activity Restrictions/Additional Instructions: Thank you for choosing [facility] for your healthcare needs today. Please realize this is an emergency room and that we are providing you with a medical screening exam and this may not be complete and all inclusive of all the testing and or work up that you may need to determine your ailment or severity of your illness. You have been screened and evaluated and felt safe for discharge. Health conditions do change or evolve sometimes and as such it is important that you follow up with your Primary Doctor to be re checked, 3-5 days is a general good time frame for follow up. You are always welcome to return to the ED for re assessment if your symptoms are worsening or you have new concerns Print Language: Czech Coding Level of Care Code ED [employer] for Jovanna Rock
[2024-05-23 09:28] LABS: ABG PCO2 36.5 mmHg (35-45); ABG PH Result 7.45 (7.35-7.45); Arterial Blood Gas Hematocrit 38.1 % (42-52); Base Excess ABG 1.5 mmol/L (-2.0-2.0); Blood Gas Allen Test Pos; Blood Gas Sample Type Arterial; Carboxyhemoglobin 1.4 %THgb (0.4-20.1); HCO3 ABG 25.4 mmol/L (22-26); HGB O2 Sat 92.7 % (95-100); Ionized Calcium Level - ABG 1.2 mmol/L (1.1-1.4); Methemoglobin 0.3 % (0.4-1.5); Oxygen Saturation ABG 94.2; PO2 ABG 66.3 mmHg (80.0-100.0); Potassium Level - ABG 3.8 mmol/L (3.5-5.0); Total Hemoglobin 12.4 g/dL (14-18)
[2024-05-23 09:29] LABS: Blood Gas Operator Identificat MONRO; Blood Gas Sample Site Radial, right; Oxygen Device ROOM AIR; PO2 FiO2 Ratio Arterial Blood 315
[2024-05-23 09:47] LABS: Basophils % 0.4 %; Eosinophils # 0.1 10^3/uL (0.0-0.8); Eosinophils % 0.7 %; Hematocrit 35.3 % (37-53); Lymphocytes # 1.2 10^3/uL (0.8-4.8); Lymphocytes % 11.8 %; Mean Corpuscular HGB Conc 33.1 g/dL (30-55); Mean Corpuscular Hemoglobin 32.3 pg (27-33); Mean Corpuscular Volume 97.5 fl (82-101); Mean Platelet Volume 9.4 fL (7.4-10.4); Monocytes # 0.8 10^3/uL (0.2-0.9); Monocytes % 7.6 %; Neutrophils # 7.81 10^3/uL (1.8-7.7); Neutrophils % 77.6 %; Nucleated Red Blood Cells % 0 %; Platelet Count 186 10^3/cmm (157-399); Red Blood Count 3.62 10^6/uL (3.85-5.65); Red Cell Distribution Width 13.8 % (12.1-15.1); White Blood Count 10.07 10^3/uL (3.29-11.43)
[2024-05-23 10:11] LABS: Lactic Sepsis W/Reflex 2.7 mmol/L (0.5-2.2)
[2024-05-23 10:17] LABS: Troponin(5th) Baseline 34 ng/L (0-15)
[2024-05-23 10:18] LABS: Covid PCR NEGATIVE (Negative); Influenza A NEGATIVE (Negative); Influenza B NEGATIVE (Negative); Respiratory Syncytial Virus Ce NEGATIVE (Negative)
[2024-05-23 10:24] LABS: Alanine Aminotransferase 66 U/L (0-41); Albumin Level 3.5 g/dL (3.5-5.2); Alkaline Phosphatase 76 U/L (40-130); Anion Gap 15.6 (5-19); Aspartate Amino Transferase 34 U/L (0-40); Blood Urea Nitrogen 17 mg/dL (8-23); Calcium 8.6 mg/dL (8.5-10.5); Carbon Dioxide 25 mmol/L (22-29); Chloride 101 mmol/L (98-107); Creatinine Clr Calc Pharmacy 79.7689; Globulin 2.7 g/dL (1.3-4.6); Glucose 105 mg/dL (65-115); NT Pro B Type Natriuretic Pept 347 pg/mL (0-450); Osmolality Calculated 288 mOsm/kg (285-295); Potassium 3.6 mmol/L (3.5-5.1); Sodium 138 mmol/L (136-145); Total Bilirubin 0.7 mg/dL (0.15-1.2); Total Protein 6.2 g/dL (6.6-8.7)
[2024-05-23 10:35] VITALS: BP 169/84; PULSE 84; O2SAT 96
[2024-05-23] MEDS: methylPREDNISolone sod succ 125 mg/2 mL INJ IVP (10:42)
[2024-05-23] MEDS: albuterol 2.5 mg/3 mL Neb INHALATION (10:48)
[2024-05-23 10:50] VITALS: PULSE 83; RESP 20; O2SAT 96
[2024-05-23 10:52] VITALS: BP 154/99; PULSE 84; O2SAT 99
--- NOTE | 2024-05-23 11:08 | PC.NURSE ---
pt and pt's verbalized desire to be discharged, denies any further needs/requests during discharge education. pt assisted to POV via wheelchair
[2024-05-23 11:23] LABS: Reflex Lactate Order REFLEX LACTIC ORDERD
== END 2024-05-23 11:08 | disposition home or self-care (01) ==
PROVIDERS: Emergency Provider Emergency Medicine; PCP Family Medicine
DX: J44.1 Chronic obstructive pulmonary disease with (acute) exacerbation (principal); Z79.01 Long term (current) use of anticoagulants; Z79.82 Long term (current) use of aspirin; Z11.52 Encounter for screening for COVID-19; Z87.891 Personal history of nicotine dependence; I25.10 Atherosclerotic heart disease of native coronary artery without angina pectoris; I10 Essential (primary) hypertension
CPT/HCPCS: 36600; 71045; 80051; 80053; 82330; 82805; 83605; 83880; 84484; 85025; 87637; 93005; 94640; 96374; 99285; J2919; J7613

== ENCOUNTER → 2024-08-13 13:17 | Outpatient (BNVA) | payer MEDICARE, OTHER, SELFPAY | PROVIDERS: PCP Family Medicine; Visit Provider Internal Medicine Cardiovascular Disease | DX: I25.10 Atherosclerotic heart disease of native coronary artery without angina pectoris (principal); I11.0 Hypertensive heart disease with heart failure; I50.9 Heart failure, unspecified; D64.9 Anemia, unspecified; E78.5 Hyperlipidemia, unspecified; I71.43 Infrarenal abdominal aortic aneurysm, without rupture; Z86.711 Personal history of pulmonary embolism | CPT/HCPCS: 99214 ==

== ENCOUNTER → 2025-02-28 10:15 | Outpatient (BNVA) | payer MEDICARE, OTHER, SELFPAY | PROVIDERS: PCP Family Medicine; Visit Provider Podiatrist Foot & Ankle Surgery | DX: R09.89 Other specified symptoms and signs involving the circulatory and respiratory systems (principal); I25.10 Atherosclerotic heart disease of native coronary artery without angina pectoris; Z95.5 Presence of coronary angioplasty implant and graft; L60.3 Nail dystrophy | CPT/HCPCS: 99203 ==

== ENCOUNTER 2025-04-03 10:08 | Outpatient (CLI) | payer MEDICARE, OTHER, SELFPAY ==
--- NOTE | 2025-04-03 10:30 | USR_ITS ---
PROCEDURE INFORMATION: Exam: US Bilateral Noninvasive Physiologic Study of the Lower Extremity Arteries, Limited Exam date and time: 04/03/2025 11:28 AM Age: 84 years old Clinical indication: Pain; Leg, lower; Bilateral; Additional info: Pre-procedure testing, (please preform: Bilateral lower extremity bisi/tbi's with US TECHNIQUE: Imaging protocol: Bilateral Limited bilateral noninvasive physiologic studies of lower extremity arteries. Waveforms were obtained and evaluated. Images were documented and archived. Exam is limited. COMPARISON: CT angio chest w abd pel w con 05/11/2023 10:51 AM FINDINGS: Pressures from portable low in mm Hg Right: brachial: 165 Posterior tibial: 196 Dorsalis pedis: 186 Left brachial: 168 Posterior tibial: 138 Dorsalis pedis: 133 Right Ankle-Brachial Index: 1.02 - 1.17 Left Ankle-Brachial Index: 0.79 - 0.85 US/CV ankle brachial index [id number] IMPRESSION: Diminished ankle-brachial index on the left suggesting atherosclerotic disease, correlation with CTA is available if clinically indicated.
== END 2025-04-03 10:09 | disposition home or self-care (01) ==
LOC: RAD 10:10
PROVIDERS: PCP Family Medicine; Visit Provider Podiatrist Foot & Ankle Surgery
DX: R09.89 Other specified symptoms and signs involving the circulatory and respiratory systems (principal); Z95.5 Presence of coronary angioplasty implant and graft; I25.10 Atherosclerotic heart disease of native coronary artery without angina pectoris; I70.202 Unspecified atherosclerosis of native arteries of extremities, left leg; I70.201 Unspecified atherosclerosis of native arteries of extremities, right leg
CPT/HCPCS: 93922